=== PATIENT | female | born 1975 ===

== ENCOUNTER → 2016-08-26 | Outpatient (CLI) | payer BC ==
[~2016-08-26] VITALS: Ht 152.4 cm; Wt 93.3 kg
[~2016-08-26] MED LIST: CALC500C3; IBUP600T44 PO; PRENTAB26 PO; PYRI100T4 PO; TYLUNK PO
[2016-08-26 15:12] VITALS: BP 132/83; PULSE 98; Ht 152.4 cm; Wt 93.3 kg
== END | disposition home or self-care (01) ==
LOC: C.NEUR 14:25
PROVIDERS: ATTEND Internal Medicine Pulmonary Disease
DX: R06.83 Snoring (principal); G47.19 Other hypersomnia; R53.83 Other fatigue

== ENCOUNTER → 2016-10-09 | Outpatient (CLI) | payer BC ==
--- NOTE | 2016-10-10 06:04 | PAP/PSG TECHNICIAN REPORT ---
[facility] Typesetting Machine Tender Polysomnogram Report Study name: None Report date: 10/10/2016 Study date: 10/09/2016 Referring Physician: DR. VELA Name: ERIKA JOLLY Interpreting Physician: Nnamdi Vela M.D. Date of : 1975 Typesetting Machine Tender: KAILEY Calle. Sex: Female Age: 40 StudyType: PSG Weight: 205 lbs 16 inches Height: 40 years, Height 5' 0" Neck Circum: BMI: 40.03 Medications: ATRALIN GEL, BENZACLIN GEL, PAROXETINE HCL 40 MG, SOLODYN Patient History PATIENT HAS HISTORY OF EXCESSIVE DAYTIME SLEEPINESS, SNORING, FATIGUE AND A DEVOATED SEPTUM. SHE ALSO HAS HISTORY OF DEPRESSION. SHE IS HERE TODAY FOR AN EVALUATION OF ML. ESS = 9 RM 7 Parameters Monitored NPSG: E1-M2, E2-M1, Fp1-M2, Fp2-M1, F3-M2, F4-M2, F4-M1, C3-M2, C4-M2, C4-M1, O1-M2, O2-M2, O2-M1, T3-M2, T4-M1, P3-M2, P4-M1, CHIN1, CHIN2, HR, EKG, Legs, PFLOW, SNOR, FLOW, CFLOW, Tidal Volume, THOR, ABDO, SpO2, PLTH, CPRESS, ETCO2 Wave, ETCO2, pH Sleep Architecture Sleep Stages Time at Lights Off 10:13:22 PM STAGES Time (min.) TST (%) Time at Lights On 5:32:52 AM Wake 112.5 -- Total Recording Time (TRT) 440.00 min. N1 25.0 8 Total Sleep Period (TSP) 360.5 min. N2 210.5 64 Total Sleep Time (TST) 327.0min. N3 45.0 14 Awake Time 113.0 min. REM 46.5 14 Wake after Sleep Onset 34.5 min. Sleep Efficiency (SE) 74 % Sleep Onset Latency (SHANNON) 78.0 min. Number of Stage 1 Shifts None Awakenings 12 Stage Changes 53 Number of REM periods 3 REM 46.5 14 REM Latency 140.5 min. NREM 280.5 86 Body Position Analysis Supine Right Left Side Prone Vertical Total Sleep Time (min.) 192.5 225.9 0.0 225.87 0.0 0.0 Total Sleep Time (%) 31% 69% 0% 69 0% N/A% Total Sleep Time REM (min.) 15.1 31.4 0.0 None 0.0 0.0 Total Sleep Time NREM (min.) 86.0 194.5 0.0 None 0.0 0.0 Intermittent Wake (min.) 91.4 21.1 0.0 None 0.0 0.0 Total Sleep Period (%) 31% None None None None None Arousals Myoclonus (PLM) * Events Count Index Events Count Index Spontaneous 27 5 Events Awake (PLMW) 136 72.5 Respiratory 2 0.4 Events Asleep w/ Arousal (PLMA) 9 1.7 PLM 9 2 Events Asleep w/o Arousal (PLMS) 49 9.0 Snoring 10 2 Total Asleep 58 10.6 Total 47 9 Total 194 26 Respiratory Analysis * CA OA MA CH H RERA Total Count 0 0 0 0 8 1 8 Index 0.0 0.0 0.0 0 1.5 0 1.7 Mean Duration 0.0 0.0 0.0 0.00 16.0 15.3 15.9 Longest Duration 0.0 0.0 0.0 0.00 0.0 15.3 19.8 Respiratory Event Summary Total Supine ~Supine Right Left Prone REM NREM Apneas Count 0 0 0 0 N/A N/A 0 0 Index 0.0 0 0 0.0 N/A N/A 0 0 Hypopneas (4% Desat) Count 8 4 4 4 N/A N/A 7 1 Index 1.5 2.4 1 1.1 N/A N/A 9.0 0.2 Apneas & All Hypopneas Count 8 4 4 4 N/A N/A 7 1 Index 1.5 2 1 1 N/A N/A 9.0 0.2 Respiratory Events (Marine Equipment Sales Engineer+All Hyp+RERA) Count 8 4 5 5 N/A N/A 7 1 Index 1.7 2 1 1.3 N/A N/A 9.0 0.4 Respiratory Related Arousal Count 2 4 2 2 N/A N/A 1 1 Index 0.4 0 1 1 N/A N/A 1 0 Snoring Analysis Supine Right Left Prone REM NREM Total Snore duration 58.0 min Snores count 571 1,505 N/A N/A 268 1,808 2,076 Snore mean duration 1.7 Sec Snores index 339 400 N/A N/A 345.8 386.7 380.9 TST with snoring (%) 17.7% Desaturation Event Summary: Minimum %SpO2 Event Count Mean/Min/Max Duration(sec.) Desaturation Index % Time In Bed > 90 9 23.9 / 9.8 / 42.0 1.3 99.6 86 - 90 1 9.8 / 9.8 / 9.8 38.1 0.4 81 - 85 0 N/A 0.0 0.0 76 - 80 0 N/A 0.0 0.0 71 - 75 0 N/A 0.0 0.0 66 - 70 0 N/A 0.0 0.0 61 - 65 0 N/A 0.0 0.0 56 - 60 0 N/A 0.0 0.0 51 - 55 0 N/A 0.0 0.0 < 50 0 N/A 0.0 0.0 Total REM NREM Awake <50% 0.0 min. 0.0 min. 0.0 min. 0.0 min. 51 - 60% 0.0 min. 0.0 min. 0.0 min. 0.0 min. 61 - 70% 0.0 min. 0.0 min. 0.0 min. 0.0 min. 71 - 80% 0.1 min. 0.0 min. 0.0 min. 0.1 min. 81 - 90% 1.6 min. 1.6 min. 0.0 min. 0.1 min. 91 - 100% 429.1 min. 44.9 min. 280.3 min. 103.8 min. Average 93 93 93 94 Minimum SpO2 76 88 91 76 Desaturation Event Index 1.2 9.0 0.2 0.5 # Desat. Events below 89% 1 1 N/A N/A Time(%) with Saturation below 89% 0.1 0.0 0.0 0.0 Time(min.) with Saturation below 89% 0.3 0.1 0.0 0.2 Time (mins) REM (mins) NREM (mins) % of TST SpO2 Below 90% 6 6 NN/A 0.1 SpO2 Below 88% 1 0 0 0 Heart Rate Analysis Min (bpm) Max (bpm) Average (bpm) Awake 46 300 83 NREM 73 98 86 REM 73 105 88 Overall 73 105 86 Supplemental O2 Values Minimum O2 level: None Value Start Time End Time Typesetting Machine Tender Comments Mrs. Jolly slept in the right and supine positions. No cardiac arrhythmia noted. Leg movements noted. No bruxism noted. Snoring was noted and scored as a 3 on a scale of 1 through 5. (0=no snoring, 5=snoring loud enough to be heard through a closed door or down the [address] way) Mrs. Jolly awoke to use the restroom 1 time during the night. Mrs. Jolly stated I slept as well as I do when I am in my own bed. The final report will be interpreted and signed by a sleep physician. The completed physician report will then be placed in the patient medical record. Therapy (cm H2O) 0 TIB (min.) 439.5 TST (min.) 327.0 Sleep Onset (min.) 78.0 REM Onset From Sleep (min.) 140.5 Sleep Efficiency % 74 Wakefulness (%) 26 Wakefulness (min.) 113.0 NREM 1 (%) 8 NREM 1 (min.) 25.0 NREM 2 (%) 64 NREM 2 (min.) 210.5 NREM 3 (%) 14 NREM 3 (min.) 45.0 REM (%) 14 REM (min.) 46.5 # Arousals 47 Arousal Index 9 # Snore 2,076 Snore Index 380.9 AHI 1.5 AHI Supine 2 AHI Non-Supine 1 NREM AHI 0.2 REM AHI 9.0 RDI 1.7 # Obstructive Apnea 0 # Central Apnea 0 # Mixed Apnea 0 # Hypopneas 8 RERAs 1 Total Respiratory Events 9 Time Below SpO2 89% (min.) 0.1 Mean NREM SpO2 (%) 93 Mean REM SpO2 (%) 93 Mean Sleep SpO2 (%) 93 Min NREM SpO2 (%) 91 Min REM SpO2 (%) 88 Position Supine (min.) 192.5 Position Non-supine (min.) 225.9 LM Index Sleep 10.6 LM Index NREM 8.1 LM Index REM 25.8 Mean Heart Rate (bpm) 86 Min Heart Rate (bpm) 73
--- NOTE | 2016-10-10 19:13 | POLYSOMNOGRAPH REPORT ---
CLINICAL DATA: A 40-year-old female with BMI of 40 referred by myself, Dr. Dominik Ross and Miguel Maciel for evaluation of excessive daytime sleepiness, snoring, fatigue, deviated septum and depression. Her [place] sleepiness score is 9/24. SLEEP ARCHITECTURE: Total sleep period was 360.5 minutes. Total sleep time was 327 minutes divided between 280.5 minutes of non-REM sleep and 46.5 minutes of REM sleep. Sleep onset latency was delayed at 78 minutes. REM latency was mildly delayed at 140.5 minutes. Sleep efficiency was mildly reduced at 74%. Wake after sleep onset was 34.5 minutes. Sleep consisted of stage N1 8%, stage N2 64%, stage III 14%, N2, and REM 14%. AROUSAL DATA: 47 arousals were recorded for an index of 9 per hour. 27 were spontaneous. Ten were due to snoring. PLM DATA: 58 limb movements during sleep were noted for an index of 10.6 per hour with arousal index of 1.7 per hour. RESPIRATORY DATA: There was no evidence of clinically significant sleep apnea/hypopnea. The AHI was 1.5. There were 8 hypopneic episodes. The mean duration of hypopnea was 15 seconds. OXIMETRY DATA: No significant hypoxemia was seen. Oxygen prachi was 88% during REM. The mean saturation was 93%. EKG: Heart rates ranged from 73-105 beats per minute. No arrhythmias were noted. CREWMAN ARMOURED PERSONNEL CARRIER M113'S COMMENTS: The patient slept in the right and supine positions. Snoring was moderate, rated 3 on a scale of 1-5. IMPRESSION: No evidence of clinically significant sleep apnea/hypopnea, nocturnal hypoxemia or abnormal limb movements during sleep to explain this patient's symptoms. RECOMMENDATIONS: The patient should continue to practice good sleep hygiene. Weight loss may be of benefit. Continue treatment for depression is recommended. Clinical correlation is needed. [facility]
== END | disposition home or self-care (01) ==
LOC: C.NEUR 21:00
PROVIDERS: ATTEND Internal Medicine Pulmonary Disease
DX: G47.19 Other hypersomnia (principal); R53.83 Other fatigue; R06.83 Snoring

== ENCOUNTER → 2016-10-18 | Outpatient (CLI) | payer BC ==
[~2016-10-18] VITALS: Ht 152.4 cm; Wt 95.8 kg
[2016-10-18 15:24] VITALS: BP 118/78; PULSE 103; Ht 152.4 cm; Wt 95.8 kg
== END | disposition home or self-care (01) ==
LOC: C.NEUR 13:37
PROVIDERS: ATTEND Internal Medicine Pulmonary Disease
DX: R06.83 Snoring (principal); J32.4 Chronic pansinusitis

== ENCOUNTER → 2017-09-21 | Outpatient (CLI) | payer BC, OTHER | END | disposition home or self-care (01) | LOC: C.LAB1850 11:07 | PROVIDERS: ATTEND Internal Medicine Endocrinology, Diabetes & Metabolism | DX: E03.9 Hypothyroidism, unspecified (principal) ==

== ENCOUNTER → 2017-11-23 | Outpatient (CLI) | payer OTHER | END | disposition home or self-care (01) | LOC: C.LAB1850 09:31 | PROVIDERS: ATTEND Internal Medicine Endocrinology, Diabetes & Metabolism | DX: E03.9 Hypothyroidism, unspecified (principal) ==

== ENCOUNTER 2022-05-27 21:48 | Observation (INO) ==
--- NOTE | 2022-05-27 22:14 | Emergency Department Note ---
Impression & Plan Slurred speech, Acute left-sided weakness, Paresthesia of left arm and leg ED Provider Note Name: ERIKA GOTTI Age: 46 Sex: F Arrives Via: Walk-In Informant: Patient ED Provider: Jerman Hughes MD Chief Complaint: Neurologic complaint Impression: As per impressions above Medical Decision Makin-year-old female with a history of hypothyroid, migraines, anxiety/depression arrives for evaluation of essentially 48 hours of left arm and leg paresthesia/heaviness which initially had started after an episode of slurred speech and weakness in left arm and leg. On arrival she has an NIH score of 0 and has no acute concerning findings by examination though story is quite concerning. A CT of the head with angio of the head and neck was obtained which is fortunately unremarkable. Labs obtained and unremarkable. Her blood pressure runs a bit low she is given some IV fluids she has no significant discomfort. EKG is unremarkable and her troponin is within normal limits I think ACS is quite unlikely. There is no A. fib. I do not see any clear gayle cation for anticoagulation beyond just giving her a full dose aspirin at this time. Given her symptoms I think it would be prudent bring her in for further work-up for possible stroke. Patient is agreeable to this as it is . Hospitalist consulted for further management. Patient has no active neurologic deficits thus emergent MRI not indicated. She has no recent story to be concerning for possible underlying dissection with a negative CTA I think this is unlikely. She does not have evidence of meningitis by examination. Furthermore patient does have a history of migraines though makes it clear this is not like her typical migraine. Prior Medical Record and Triage/Nursing Notes reviewed by Me Additional history obtained from chart Differentials:Stroke, TIA, ICH, dissection, tumor, migraine, electrolyte imbalance, meningitis, amongst other Vital Signs: reviewed and remarkable for mildly hypotensive Interventions: Normal saline bolus 1 L IV, aspirin 324 mg p.o. Labs:Reviewed and remarkable for no significant abnormalities Imaging:CT of the head and CT angio of the head neck as per radiology no acute findings EKG:As per my interpretation. Indication strokelike symptoms. Sinus bradycardia at 59 bpm with a QTC of 429. There is no ectopy nor ischemia. When compared to an EKG of February 21, 2022 there is no acute change. Consults:Dr Raymond Plan: Disposition:Hospitalization. Condition: Good History of Present Illness:46-year-old female arrives for evaluation of strokelike symptoms. Patient notes that 2 evenings ago she was having some heaviness in her left arm and left leg felt like she could not walk properly. Shortly thereafter she realized she was having difficulty with speaking and had slurred speech for 5 to 10 minutes. Symptoms seem to have resolved over the next few hours but she states she has continued feeling a heaviness feeling in her left arm and leg. She denies any weakness, gait instability, small muscle dexterity issues, other concerning signs or symptoms though does note that she has been having pretty severe headache. Headache is left frontal. Stabbing in nature. Different than her typical migraines. No fevers, chills, neck stiffness. No falls, trauma, injuries. She takes no blood thinners nor aspirin. She is on topiramate for her migraines and has not had a severe migraine in quite some time and states this is not similar to those. No medications prior to arrival. Nothing makes better or worse. Patient had called her PCP who advised she had to come to the ER for evaluation. ROS: See above HPI for pertinent positives & negatives. A total of 10 systems reviewed and were otherwise negative. Past Medical History:Hypothyroid, migraine, anxiety/depression Past Surgical History:Gastric bypass Family History:Grandfather with a history of stroke Social History:Non-smoker, no drugs, , occasional alcohol Home Medications: levothyroxine, sertraline, topiramate Allergies:nkda Vitals:Blood Pressure: 134/84, Pulse 59, RR 18, T 36.3C, O2 99% on RA Physical Exam: GENERAL: Patient is anxious appearing and in mild distress. EYES: No scleral icterus, unremarkable pupils. ENT: Mucous membranes moist, no nasal congestion. NECK: No masses appreciated, nomeningismus, trachea is midline. RESPIRATORY: No dyspnea. Clear to auscultation and equal bilaterally. No wheeze, no rhonchi. CARDIOVASCULAR: Regular rate and rhythm.No murmurs, rubs, gallops appreciated. GASTROINTESTINAL: Abdomen soft, non-tender, no peritonitis.Bowel sounds positive.No masses appreciated. BACK: No midline tenderness, no CVA tenderness EXTREMITIES: Normal motion all extremities, no cyanosis, no edema. NEUROLOGIC: Alert and oriented, no acute motor or sensory deficits, no focal weakness, cranial nerves grossly intact. SKIN: No rash, no jaundice, no diaphoresis. PSYCH: Appropriate GCS: 15 ED Course: Times/Reassessments: Stable throughout no distress and comfortable plan for hospitalization Jerman Hughes MD Past Med/Surg History Medical History Fatigue Hypothyroidism Obesity Surgical History Gastric bypass status for obesity Family History (Updated 02/21/22 @ 20:28 by Maged Vázquez) Other Hypertension Social History Smoking Status: Never smoker Preferred Language: Georgian Feels Safe at Home: Yes Allergies Allergies Allergy/AdvReac Type Severity Reaction Status Date / Time No Known Allergies Allergy Unknown Verified 05/28/22 00:30 Home Meds Home Medications Medication Instructions Recorded Confirmed omeprazole 20 mg capsule,delayed 20 mg PO QAM 05/27/22 05/27/22 release cholecalciferol (vitamin D3) 50 50 mcg PO DAILY 05/28/22 05/28/22 mcg (2,000 unit) capsule (Vitamin D3) cyanocobalamin (vitamin B-12) 1,000 mcg IM UD 05/28/22 05/28/22 1,000 mcg/mL injection solution multivitamin (Multiple Vitamins 1 tab PO DAILY 05/28/22 05/28/22 tablet) sertraline 100 mg tablet 50 mg PO DAILY 05/28/22 05/28/22 topiramate 50 mg tablet 50 mg PO HS 05/28/22 05/28/22 zinc gluconate 30 mg tablet 30 mg PO DAILY 05/28/22 05/28/22 Previous Rx's Medication Instructions Recorded levothyroxine 150 mcg tablet 150 mcg PO DAILY #90 tabs 02/16/22 Results & Data (ED) Vital Signs Vital Signs - 24 hr 05/27/22 21:54 05/27/22 22:21 05/27/22 23:08 Temperature 36.3 C L Temperature Source Temporal Artery Scan Pulse Rate 59 L Pulse Rate [Left Apical] 66 Pulse Rhythm [Left Apical] Regular Pulse Strength [Left Apical] Normal Respiratory Rate 18 16 Respiratory Effort / Characteristics Non-Labored Spontaneous Non-Labored Spontaneous Respiratory Depth Normal Normal Respiratory Pattern Regular Blood Pressure 134/84 Blood Pressure [Left Arm] 87/60 L Blood Pressure Mean 100 Blood Pressure Mean [Left Arm] 69 Blood Pressure Position [Left Arm] Pulse Oximetry 99 99 Oxygen Delivery Method Room Air Room Air Room Air Sepsis Recent Fever Within 48 Hours No Sepsis New/Unexplained Change in Mental Status N/A Sepsis Action Taken by Nursing No Action Required 05/27/22 23:38 05/28/22 01:02 Temperature Temperature Source Pulse Rate Pulse Rate [Left Apical] 66 77 Pulse Rhythm [Left Apical] Regular Regular Pulse Strength [Left Apical] Normal Normal Respiratory Rate 16 16 Respiratory Effort / Characteristics Non-Labored Spontaneous Non-Labored Spontaneous Respiratory Depth Normal Normal Respiratory Pattern Blood Pressure Blood Pressure [Left Arm] 99/65 L 90/52 L Blood Pressure Mean Blood Pressure Mean [Left Arm] 76 64 Blood Pressure Position [Left Arm] Lying Pulse Oximetry 99 100 Oxygen Delivery Method Room Air Room Air Sepsis Recent Fever Within 48 Hours Sepsis New/Unexplained Change in Mental Status Sepsis Action Taken by Nursing Laboratory Data Result diagrams: 05/27/22 22:18 05/27/22 22:18 Lab Results 05/27/22 05/27/22 05/27/22 Range/Units 22:18 22:18 22:18 WBC 6.97 (4.8-10.8) K/ul RBC 4.44 (3.93-5.22) M/uL Hgb 14.3 (12.0-16.0) g/dl Hct 43.0 (34.1-44.9) % MCV 96.8 (80.0-100.0) fL MCH 32.2 (25.0-34.0) pg MCHC 33.3 (32.0-36.0) g/dL RDW Std Deviation 50.1 H (36.4-46.3) fL RDW Coeff of Cirilo 14.0 (11.5-14.5) % Plt Count 196 (130-400) K/uL MPV 10.6 (9.4-12.3) fL Immature Gran % (Auto) 0.3 % Neut % (Auto) 45.5 % Lymph % (Auto) 44.9 % [place] % (Auto) 7.2 % Eos % (Auto) 1.1 % Baso % (Auto) 1.0 % Neut # (Auto) 3.17 (1.4-6.5) K/uL Lymph # (Auto) 3.13 (1.2-3.4) K/uL [place] # (Auto) 0.50 (0.24-0.82) K/uL Eos # (Auto) 0.08 (0-0.50) K/uL Baso # (Auto) 0.07 (0-0.2) K/uL Immature Gran # (Auto) 0.02 (0.00-0.02) K/uL PT 10.3 (9.0-12.0) Seconds INR 1.0 (0.9-1.1) APTT 27.8 (21.0-31.0) Seconds PTT Ratio 1.0 Sodium 139 (136-145) mmol/L Potassium 4.3 (3.5-5.1) mmol/L Chloride 112 H (98-107) mmol/L Carbon Dioxide 21 (21-32) mmol/L Anion Gap 6 (3-11) BUN 10 (6-23) mg/dl Creatinine 0.64 (0.6-1.2) mg/dl Est Cr Clr Drug Dosing 98.2 ml/min Est GFR ( Amer) 124.0 ml/min Est GFR (Non-Af Amer) 107.0 ml/min BUN/Creatinine Ratio 15.6 (10-20) Glucose 88 (70-99(Fasting)) mg/dl Calcium 8.4 L (8.5-10.1) mg/dl Magnesium 1.9 (1.7-2.4) mg/dl Total Bilirubin 0.5 (0.2-1.0) mg/dl AST 33 (13-39) U/L ALT 33 (7-52) U/L Alkaline Phosphatase 138 H (34-104) U/L Troponin I High Sens < 2.3 (0-14) pg/ml Total Protein 7.2 (6.0-8.3) gm/dl Albumin 4.1 (3.4-5.0) gm/dl Globulin 3.1 (2.5-4.0) gm/dl Albumin/Globulin Ratio 1.3 (0.9-2) TSH (0.300-4.500) uIu/ml SARS-CoV-2, RNA, NAAT (NEGATIVE) 05/27/22 05/28/22 Range/Units 22:18 00:42 WBC (4.8-10.8) K/ul RBC (3.93-5.22) M/uL Hgb (12.0-16.0) g/dl Hct (34.1-44.9) % MCV (80.0-100.0) fL MCH (25.0-34.0) pg MCHC (32.0-36.0) g/dL RDW Std Deviation (36.4-46.3) fL RDW Coeff of Cirilo (11.5-14.5) % Plt Count (130-400) K/uL MPV (9.4-12.3) fL Immature Gran % (Auto) % Neut % (Auto) % Lymph % (Auto) % [place] % (Auto) % Eos % (Auto) % Baso % (Auto) % Neut # (Auto) (1.4-6.5) K/uL Lymph # (Auto) (1.2-3.4) K/uL [place] # (Auto) (0.24-0.82) K/uL Eos # (Auto) (0-0.50) K/uL Baso # (Auto) (0-0.2) K/uL Immature Gran # (Auto) (0.00-0.02) K/uL PT (9.0-12.0) Seconds INR (0.9-1.1) APTT (21.0-31.0) Seconds PTT Ratio Sodium (136-145) mmol/L Potassium (3.5-5.1) mmol/L Chloride (98-107) mmol/L Carbon Dioxide (21-32) mmol/L Anion Gap (3-11) BUN (6-23) mg/dl Creatinine (0.6-1.2) mg/dl Est Cr Clr Drug Dosing ml/min Est GFR ( Amer) ml/min Est GFR (Non-Af Amer) ml/min BUN/Creatinine Ratio (10-20) Glucose (70-99(Fasting)) mg/dl Calcium (8.5-10.1) mg/dl Magnesium (1.7-2.4) mg/dl Total Bilirubin (0.2-1.0) mg/dl AST (13-39) U/L ALT (7-52) U/L Alkaline Phosphatase (34-104) U/L Troponin I High Sens (0-14) pg/ml Total Protein (6.0-8.3) gm/dl Albumin (3.4-5.0) gm/dl Globulin (2.5-4.0) gm/dl Albumin/Globulin Ratio (0.9-2) TSH 0.588 (0.300-4.500) uIu/ml SARS-CoV-2, RNA, NAAT NEGATIVE (NEGATIVE) Administered Medications Magnesium Sulfate/Dextrose (Magnesium Sulfate / D5w) 1 gm in 100 mls @ 50 mls/hr IV ONE ONE Stop: 05/28/22 03:20 Last Admin: 05/28/22 02:09 Dose: 50 mls/hr Documented By: WENDY Sodium Chloride (Nss 1000ml) 1,000 mls @ 100 mls/hr IV .Q10H STA Stop: 05/28/22 11:43 Last Admin: 05/28/22 02:09 Dose: 100 mls/hr Documented By: WENDY Discontinued Medications Aspirin (Aspirin 81 Mg Chew) 324 mg PO NOW STA Stop: 05/28/22 00:30 Last Admin: 05/28/22 00:47 Dose: 324 mg Documented By: WENDY Sodium Chloride (Nss 1000ml) 1,000 mls @ 999 mls/hr IV .Q1H1M ONE Stop: 05/28/22 00:20 Last Infusion: 05/28/22 00:45 Dose: 0 mls/hr Documented By: Admin: 05/27/22 23:43 Dose: 999 mls/hr Documented By: WENDY Ioversol (Optiray 320 500ml) 111 ml IV ONCE ONE Stop: 05/27/22 22:41 Last Admin: 05/27/22 22:40 Dose: 111 ml Documented By: JOSE Imaging Data Radiologist's Impression: Head CT 05/27/22 22:[address] OF THE BRAIN; CT ANGIOGRAM OF THE BRAIN; CT ANGIOGRAM OF THE NECK CLINICAL HISTORY: Strokelike symptoms. COMPARISON STUDY: No priors. TECHNIQUE: Unenhanced axial CT scan of the brain is performed. Subsequently, following the IV administration of 111 of Optiray 320, CT angiogram of the head and neck was performed from the aortic arch to the vertex. Images are reviewed in the axial, sagittal, and coronal planes. 3-D MIPS images are created and assessed. IV contrast was administered without complication. All measurements were calculated based on NASCET criteria. A dose lowering technique was utilized adhering to the principles of ALARA. CT DOSE: 1034.23 mGy.cm FINDINGS: Brain parenchyma: The brain parenchyma is normal in appearance. There is no hemorrhage, mass effect, or evidence of acute territorial ischemia by CT criteria. There is no evidence of enhancing mass lesion on the angiogram phase images. The ventricles, sulci, and cisterns are normal in configuration. Jimenez- white matter differentiation is preserved. No extra-axial fluid collection is seen. Thoracic aorta: Visualized portions of the thoracic aorta are normal in caliber. The aortic arch demonstrates standard 3-vessel anatomy. Right carotid arterial system: The right common carotid artery is widely patent, as are the right internal and external carotid arteries. Left carotid arterial system: The left common carotid artery is widely patent, as are the left internal and external carotid arteries. Vertebral arteries: The vertebral arteries are widely patent bilaterally and codominant. No dissection is seen. Subclavian arteries: Widely patent bilaterally. Intracranial vasculature: The internal carotid arteries are patent at the skull base, as are the anterior and middle cerebral arteries bilaterally. The vertebrobasilar system and posterior cerebral arteries are widely patent. The vertebral arteries are codominant. There is no aneurysm, high-grade stenosis, or focal vessel cut off seen throughout the intracranial circulation. Jugular veins: Patent bilaterally. Dural sinuses: Patent. Lung apices: Partially visualized upper lobe lung parenchyma appears clear. Soft tissues: The visualized pharyngeal soft tissues are normal in appearance noting angiographic phase technique. The oropharyngeal airway appears widely patent. The salivary and thyroid glands are normal in appearance. No cervical lymphadenopathy is seen. Skeletal structures: The calvarium appears intact. The cervical spine is within normal limits. Orbits: The bony orbits are intact. Orbital contents are normal as visualized. Sinuses and mastoids: The paranasal sinuses are clear. There is trace right mastoid effusion. The left mastoid air cells are well pneumatized. IMPRESSION: 1. There is no hemorrhage, mass effect, or evidence of acute territorial ischemia by CT criteria. 2. Unremarkable CT angiogram of the brain. 3. Unremarkable CT angiogram of the neck. ACT 112: Negative or not required by law. Electronically signed by: Kaleb Bernard M.D. 05/27/2022 11:21 PM Head CTA 05/27/22 22:[address] OF THE BRAIN; CT ANGIOGRAM OF THE BRAIN; CT ANGIOGRAM OF THE NECK CLINICAL HISTORY: Strokelike symptoms. COMPARISON STUDY: No priors. TECHNIQUE: Unenhanced axial CT scan of the brain is performed. Subsequently, following the IV administration of 111 of Optiray 320, CT angiogram of the head and neck was performed from the aortic arch to the vertex. Images are reviewed in the axial, sagittal, and coronal planes. 3-D MIPS images are created and assessed. IV contrast was administered without complication. All measurements were calculated based on NASCET criteria. A dose lowering technique was utilized adhering to the principles of ALARA. CT DOSE: 1034.23 mGy.cm FINDINGS: Brain parenchyma: The brain parenchyma is normal in appearance. There is no hemorrhage, mass effect, or evidence of acute territorial ischemia by CT criter ia. There is no evidence of enhancing mass lesion on the angiogram phase images. The ventricles, sulci, and cisterns are normal in configuration. Jimenez-white matter differentiation is preserved. No extra-axial fluid collection is seen. Thoracic aorta: Visualized portions of the thoracic aorta are normal in caliber. The aortic arch demonstrates standard 3-vessel anatomy. Right carotid arterial system: The right common carotid artery is widely patent, as are the right internal and external carotid arteries. Left carotid arterial system: The left common carotid artery is widely patent, as are the left internal and external carotid arteries. Vertebral arteries: The vertebral arteries are widely patent bilaterally and codominant. No dissection is seen. Subclavian arteries: Widely patent bilaterally. Intracranial vasculature: The internal carotid arteries are patent at the skull base, as are the anterior and middle cerebral arteries bilaterally. The vertebrobasilar system and posterior cerebral arteries are widely patent. The vertebral arteries are codominant. There is no aneurysm, high-grade stenosis, or focal vessel cut off seen throughout the intracranial circulation. Jugular veins: Patent bilaterally. Dural sinuses: Patent. Lung apices: Partially visualized upper lobe lung parenchyma appears clear. Soft tissues: The visualized pharyngeal soft tissues are normal in appearance noting angiographic phase technique. The oropharyngeal airway appears widely patent. The salivary and thyroid glands are normal in appearance. No cervical lymphadenopathy is seen. Skeletal structures: The calvarium appears intact. The cervical spine is within normal limits. Orbits: The bony orbits are intact. Orbital contents are normal as visualized. Sinuses and mastoids: The paranasal sinuses are clear. There is trace right mastoid effusion. The left mastoid air cells are well pneumatized. IMPRESSION: 1. There is no hemorrhage, mass effect, or evidence of acute territorial ischemia by CT criteria. 2. Unremarkable CT angiogram of the brain. 3. Unremarkable CT angiogram of the neck. ACT 112: Negative or not required by law. Electronically signed by: Kaleb Bernard M.D. 05/27/2022 11:21 PM Neck CTA 05/27/22 22:[address] OF THE BRAIN; CT ANGIOGRAM OF THE BRAIN; CT ANGIOGRAM OF THE NECK CLINICAL HISTORY: Strokelike symptoms. COMPARISON STUDY: No priors. TECHNIQUE: Unenhanced axial CT scan of the brain is performed. Subsequently, following the IV administration of 111 of Optiray 320, CT angiogram of the head and neck was performed from the aortic arch to the vertex. Images are reviewed in the axial, sagittal, and coronal planes. 3-D MIPS images are created and assessed. IV contrast was administered without complication. All measurements were calculated based on NASCET criteria. A dose lowering technique was utilized adhering to the principles of ALARA. CT DOSE: 1034.23 mGy.cm FINDINGS: Brain parenchyma: The brain parenchyma is normal in appearance. There is no hemorrhage, mass effect, or evidence of acute territorial ischemia by CT criteria. There is no evidence of enhancing mass lesion on the angiogram phase images. The ventricles, sulci, and cisterns are normal in configuration. Jimenez- white matter differentiation is preserved. No extra-axial fluid collection is seen. Thoracic aorta: Visualized portions of the thoracic aorta are normal in caliber. The aortic arch demonstrates standard 3-vessel anatomy. Right carotid arterial system: The right common carotid artery is widely patent, as are the right internal and external carotid arteries. Left carotid arterial system: The left common carotid artery is widely patent, as are the left internal and external carotid arteries. Vertebral arteries: The vertebral arteries are widely patent bilaterally and codominant. No dissection is seen. Subclavian arteries: Widely patent bilaterally. Intracranial vasculature: The internal carotid arteries are patent at the skull base, as are the anterior and middle cerebral arteries bilaterally. The vertebrobasilar system and posterior cerebral arteries are widely patent. The vertebral arteries are codominant. There is no aneurysm, high-grade stenosis, or focal vessel cut off seen throughout the intracranial circulation. Jugular veins: Patent bilaterally. Dural sinuses: Patent. Lung apices: Partially visualized upper lobe lung parenchyma appears clear. Soft tissues: The visualized pharyngeal soft tissues are normal in appearance noting angiographic phase technique. The oropharyngeal airway appears widely patent. The salivary and thyroid glands are normal in appearance. No cervical lymphadenopathy is seen. Skeletal structures: The calvarium appears intact. The cervical spine is within normal limits. Orbits: The bony orbits are intact. Orbital contents are normal as visualized. Sinuses and mastoids: The paranasal sinuses are clear. There is trace right mastoid effusion. The left mastoid air cells are well pneumatized. IMPRESSION: 1. There is no hemorrhage, mass effect, or evidence of acute territorial ischemia by CT criteria. 2. Unremarkable CT angiogram of the brain. 3. Unremarkable CT angiogram of the neck. ACT 112: Negative or not required by law. Electronically signed by: Kaleb Bernard M.D. 05/27/2022 11:21 PM Discharge Plan Visit Data Chief Complaint: Neuro Symptoms/Deficit Stated Complaint: NUMBNESS IN LEFT SIDE, FEELING WEAK, HEADACHE ED Provider: Jerman Hughes Discharge Problem: Slurred speech, Acute left-sided weakness, Paresthesia of left arm and leg Forms Stand Alone Forms: [facility] Prescriptions Prescriptions: No Action levothyroxine 150 mcg tablet 150 mcg PO DAILY Qty: 90 3RF omeprazole 20 mg capsule,delayed release(DR/EC) 20 mg PO QAM cyanocobalamin (vitamin B-12) [Vitamin B-12] 1,000 mcg/mL Solution 1,000 mcg IM UD topiramate 50 mg tablet 50 mg PO HS cholecalciferol (vitamin D3) [Vitamin D3] 50 mcg (2,000 unit) Capsule 50 mcg PO DAILY multivitamin [Multiple Vitamins] Tablet 1 tab PO DAILY sertraline 100 mg tablet 50 mg PO DAILY zinc gluconate 30 mg Tablet 30 mg PO DAILY Referrals Referrals: Alton Kerns MD [Primary Care Provider] -
[2022-05-27 22:25] LABS: Basophils # (auto) 0.07 K/uL (0-0.2); Eosinophils # (auto) 0.08 K/uL (0-0.50); Eosinophils % (auto) 1.1 %; Hemoglobin 14.3 g/dl (12.0-16.0); Immature Granulocytes # (auto) 0.02 K/uL (0.00-0.02); Immature Granulocytes % (auto) 0.3 %; Lymphocytes # (auto) 3.13 K/uL (1.2-3.4); Lymphocytes % (auto) 44.9 %; Mean Corpuscular Hemoglobin 32.2 pg (25.0-34.0); Mean Corpuscular Hgb Conc 33.3 g/dL (32.0-36.0); Mean Corpuscular Volume 96.8 fL (80.0-100.0); Mean Platelet Volume 10.6 fL (9.4-12.3); Monocytes % (auto) 7.2 %; Neutrophils # (auto) 3.17 K/uL (1.4-6.5); Neutrophils % (auto) 45.5 %; Platelet Count 196 K/uL (130-400); RDW Standard Deviation 50.1 fL (36.4-46.3); Red Blood Count 4.44 M/uL (3.93-5.22); White Blood Count 6.97 K/ul (4.8-10.8)
[2022-05-27 22:36] LABS: Partial Thromboplastin Time 27.8 Seconds (21.0-31.0); Prothrombin Time 10.3 Seconds (9.0-12.0)
[2022-05-27] MEDS ORDERED: OPTIRAY 320 500ml IV ONE (22:40)
[2022-05-27 22:50] LABS: Troponin I High Sensitivity < 2.3 pg/ml (0-14)
[2022-05-27 23:02] LABS: Alanine Aminotransferase 33 U/L (7-52); Albumin Globulin Ratio 1.3 (0.9-2); Albumin Level 4.1 gm/dl (3.4-5.0); Alkaline Phosphatase 138 U/L (34-104); Anion Gap 6 (3-11); Aspartate Aminotransferase 33 U/L (13-39); BUN Creatinine Ratio 15.6 (10-20); Bilirubin,Total 0.5 mg/dl (0.2-1.0); Blood Urea Nitrogen 10 mg/dl (6-23); Calcium 8.4 mg/dl (8.5-10.1); Carbon Dioxide 21 mmol/L (21-32); Chloride 112 mmol/L (98-107); Creatinine Clr Calc Pharmacy 98.2 ml/min; Globulin 3.1 gm/dl (2.5-4.0); Glucose 88 mg/dl (70-99(Fasting)); Magnesium 1.9 mg/dl (1.7-2.4); Potassium 4.3 mmol/L (3.5-5.1); Sodium 139 mmol/L (136-145); Total Protein 7.2 gm/dl (6.0-8.3)
[2022-05-27] MEDS ORDERED: SODIUM CHLORIDE 0.9% 1000ML 1,000 ML IV ONE (23:20)
--- NOTE | 2022-05-27 23:23 | CT Scan Report ---
UNENHANCED CT OF THE BRAIN; CT ANGIOGRAM OF THE BRAIN; CT ANGIOGRAM OF THE NECK CLINICAL HISTORY: Strokelike symptoms. COMPARISON STUDY: No priors. TECHNIQUE: Unenhanced axial CT scan of the brain is performed. Subsequently, following the IV adminis tration of 111 of Optiray 320, CT angiogram of the head and neck was performed from the aortic arch t o the vertex. Images are reviewed in the axial, sagittal, and coronal planes. 3-D MIPS images are cre ated and assessed. IV contrast was administered without complication. All measurements were calculate d based on NASCET criteria. A dose lowering technique was utilized adhering to the principles of ALA RA. CT DOSE: 1034.23 mGy.cm FINDINGS: Brain parenchyma: The brain parenchyma is normal in appearance. There is no hemorrhage, mass effect, or evidence of acute territorial ischemia by CT criteria. There is no evidence of enhancing mass lesi on on the angiogram phase images. The ventricles, sulci, and cisterns are normal in configuration. Gr ay-white matter differentiation is preserved. No extra-axial fluid collection is seen. Thoracic aorta: Visualized portions of the thoracic aorta are normal in caliber. The aortic arch demo nstrates standard 3-vessel anatomy. Right carotid arterial system: The right common carotid artery is widely patent, as are the right int ernal and external carotid arteries. Left carotid arterial system: The left common carotid artery is widely patent, as are the left wireless internet installer al and external carotid arteries. Vertebral arteries: The vertebral arteries are widely patent bilaterally and codominant. No dissectio n is seen. Subclavian arteries: Widely patent bilaterally. Intracranial vasculature: The internal carotid arteries are patent at the skull base, as are the ante rior and middle cerebral arteries bilaterally. The vertebrobasilar system and posterior cerebral yash gregorio are widely patent. The vertebral arteries are codominant. There is no aneurysm, high-grade steno sis, or focal vessel cut off seen throughout the intracranial circulation. Jugular veins: Patent bilaterally. Dural sinuses: Patent. Lung apices: Partially visualized upper lobe lung parenchyma appears clear. Soft tissues: The visualized pharyngeal soft tissues are normal in appearance noting angiographic pha se technique. The oropharyngeal airway appears widely patent. The salivary and thyroid glands are nor mal in appearance. No cervical lymphadenopathy is seen. Skeletal structures: The calvarium appears intact. The cervical spine is within normal limits. Orbits: The bony orbits are intact. Orbital contents are normal as visualized. Sinuses and mastoids: The paranasal sinuses are clear. There is trace right mastoid effusion. The lef t mastoid air cells are well pneumatized. IMPRESSION: 1. There is no hemorrhage, mass effect, or evidence of acute territorial ischemia by CT criteria. 2. Unremarkable CT angiogram of the brain. 3. Unremarkable CT angiogram of the neck. ACT 112: Negative or not required by law. Electronically signed by: Kaleb Bernard M.D. 05/27/2022 11:21 PM
[2022-05-28] MEDS ORDERED: ASPIRIN 81 MG CHEW PO STA (00:29)
[2022-05-28] MEDS ORDERED: MAGNESIUM SULFATE / D5W 1 GM/100 ML BAG IV ONE (01:21)
[2022-05-28] MEDS ORDERED: SODIUM CHLORIDE 0.9% 1000ML 1,000 ML IV STA (01:44)
[2022-05-28] MEDS ORDERED: LORazepam 0.5 MG TAB PO PRN (02:10)
[2022-05-28] MEDS ORDERED: traMADol HCL 50 MG TABLET PO PRN (02:10)
[2022-05-28] MEDS ORDERED: ACETAMINOPHEN 325 MG TAB PO PRN (02:55)
[2022-05-28] MEDS ORDERED: PROMETHAZINE HCL 12.5 MG in SODIUM CHLORIDE 0.9% 50 ML IV PRN (02:55)
--- NOTE | 2022-05-28 05:01 | History & Physical Report ---
Date of Service May 28, 2022 Assessment & Plan (1) Headache: Plan: Headache associated with transient strokelike symptoms Complicated migraine versus TIA hypothyroidism, euthyroid as of today TSH history of gastric bypass anxiety/mood disorder, stable OBS Medical telemetry neurochecks MRI brain, TTE for stroke work-up Aspirin for stroke prevention until stroke ruled out Neurology consult Re: Headache with TIA symptoms DVT prophylaxis per Lovenox subcu Full code Text document was generated using [employer] voice recognition software. It may contain grammatical or spelling errors. Kindly contact undersigned for clarification of any documentation item in question. Admission and Anticipated Discharge Date Admission Date: May 28, 2022 History of Present Illness Chief Complaint: Headache, strokelike symptoms Primary Care Provider: Alton Kerns MD History obtained from patient and records. Medical history significant for hypothyroidism, history of gastric bypass, migraine, anxiety/mood disorder. 2 days ago, patient noted transient aphasia symptoms, could not get words out, with left-sided weakness/numbness and achy left-sided headache, nausea symptoms different from migraine attack. Patient also noted posterior neck pain symptoms without radiation to the arms. Transient substernal chest pain complaints like her heart was going to drop. Aphasia and chest pain symptoms resolved after patient able to drink water given by . Headache symptoms persisted with some left-sided weakness. no prior episodes. No recent trauma. Patient called PCPs office yesterday. Patient directed to ER for further evaluation. Aspirin and IVF administered at the ER. Left-sided weakness currently improved as per patient. 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 [place] Allergies Allergy/AdvReac Type Severity Reaction Status Date / Time No Known Allergies Allergy Unknown Verified 05/28/22 00:30 Home Medications Medication Instructions Recorded Confirmed Type levothyroxine 150 mcg tablet 150 mcg PO DAILY #90 tabs 02/16/22 05/27/22 Rx omeprazole 20 mg capsule,delayed 20 mg PO QAM 05/27/22 05/27/22 History release cholecalciferol (vitamin D3) 50 50 mcg PO DAILY 05/28/22 05/28/22 History mcg (2,000 unit) capsule (Vitamin D3) cyanocobalamin (vitamin B-12) 1,000 mcg IM UD 05/28/22 05/28/22 History 1,000 mcg/mL injection solution multivitamin (Multiple Vitamins 1 tab PO DAILY 05/28/22 05/28/22 History tablet) sertraline 100 mg tablet 50 mg PO DAILY 05/28/22 05/28/22 History topiramate 50 mg tablet 50 mg PO HS 05/28/22 05/28/22 History zinc gluconate 30 mg tablet 30 mg PO DAILY 05/28/22 05/28/22 History Past Med/Surg History Medical History Fatigue Hypothyroidism Obesity Surgical History Gastric bypass status for obesity Family History (Updated 02/21/22 @ 20:28 by Maged Vázquez) Other Hypertension Social History Smoking Status: Never smoker Hx Alcohol Use: Yes Alcohol type: wine Hx Substance Use: No Preferred Language: Serbian Communication Ability: Effective Developmental Electronics Assembler Required: No Beliefs That Will Affect Care: None Current Living Situation: Spouse and Family Other Information That Helps Us Care for You: No Feels Safe at Home: Yes Safety Concerns: Feels Safe At This Time Assistive Devices: None Review of Systems Review of Systems: As per HPI, all other systems reviewed and negative Physical Exam Physical Exam: GENERAL: Comfortable, pleasant, obese, no respiratory distress SKIN: Normal color, warm HEENT: [place] palpebral conjunctivae, no ptosis, dry buccal mucosa NECK : Supple, short neck, minimal posterior cervical tenderness CHEST : CTA, no tenderness HEART : RRR, no obvious murmurs ABDOMEN: Some distention, nontender EXTREMITIES : No LE swelling/tenderness, no other conspicuous deformities noted NEUROLOGIC : Coherent, no facial asymmetry, BUE/BLE MMTs 5/5 Results & Data Results & Data ([facility]) Vital Signs (Past 12 Hours) Vital Signs Temp Pulse Pulse Pulse Resp BP BP 05/28/22 03:00 70 05/28/22 04:00 05/28/22 02:56 36.3 C L 70 18 101/69 05/28/22 01:02 77 16 90/52 L 05/27/22 23:38 66 16 99/65 L 05/27/22 23:08 66 16 87/60 L 05/27/22 22:21 05/27/22 21:54 36.3 C L 59 L 18 134/84 Pulse Ox O2 Del Method 05/28/22 03:00 05/28/22 04:00 Room Air 05/28/22 02:56 98 Room Air 05/28/22 01:02 100 Room Air 05/27/22 23:38 99 Room Air 05/27/22 23:08 99 Room Air 05/27/22 22:21 Room Air 05/27/22 21:54 99 Room Air Laboratory Results Laboratory Results WBC 6.97 K/ul (4.8-10.8) 05/27/22 22:18 RBC 4.44 M/uL (3.93-5.22) 05/27/22 22:18 Hgb 14.3 g/dl (12.0-16.0) 05/27/22 22:18 Hct 43.0 % (34.1-44.9) 05/27/22 22:18 MCV 96.8 fL (80.0-100.0) 05/27/22 22:18 MCH 32.2 pg (25.0-34.0) 05/27/22 22:18 MCHC 33.3 g/dL (32.0-36.0) 05/27/22 22:18 RDW Std Deviation 50.1 fL (36.4-46.3) H 05/27/22 22:18 RDW Coeff of Cirilo 14.0 % (11.5-14.5) 05/27/22 22:18 Plt Count 196 K/uL (130-400) 05/27/22 22:18 MPV 10.6 fL (9.4-12.3) 05/27/22 22:18 Immature Gran % (Auto) 0.3 % 05/27/22 22:18 Neut % (Auto) 45.5 % 05/27/22 22:18 Lymph % (Auto) 44.9 % 05/27/22 22:18 [place] % (Auto) 7.2 % 05/27/22 22:18 Eos % (Auto) 1.1 % 05/27/22 22:18 Baso % (Auto) 1.0 % 05/27/22 22:18 Neut # (Auto) 3.17 K/uL (1.4-6.5) 05/27/22 22:18 Lymph # (Auto) 3.13 K/uL (1.2-3.4) 05/27/22 22:18 [place] # (Auto) 0.50 K/uL (0.24-0.82) 05/27/22 22:18 Eos # (Auto) 0.08 K/uL (0-0.50) 05/27/22 22:18 Baso # (Auto) 0.07 K/uL (0-0.2) 05/27/22 22:18 Immature Gran # (Auto) 0.02 K/uL (0.00-0.02) 05/27/22 22:18 PT 10.3 Seconds (9.0-12.0) 05/27/22 22:18 INR 1.0 (0.9-1.1) 05/27/22 22:18 APTT 27.8 Seconds (21.0-31.0) 05/27/22 22:18 PTT Ratio 1.0 05/27/22 22:18 Sodium 139 mmol/L (136-145) 05/27/22 22:18 Potassium 4.3 mmol/L (3.5-5.1) 05/27/22 22:18 Chloride 112 mmol/L (98-107) H 05/27/22 22:18 Carbon Dioxide 21 mmol/L (21-32) 05/27/22 22:18 Anion Gap 6 (3-11) 05/27/22 22:18 BUN 10 mg/dl (6-23) 05/27/22 22:18 Creatinine 0.64 mg/dl (0.6-1.2) 05/27/22 22:18 Est Cr Clr Drug Dosing 98.2 ml/min 05/27/22 22:18 Est GFR ( Amer) 124.0 ml/min 05/27/22 22:18 Est GFR (Non-Af Amer) 107.0 ml/min 05/27/22 22:18 BUN/Creatinine Ratio 15.6 (10-20) 05/27/22 22:18 Glucose 88 mg/dl (70-99(Fasting)) 05/27/22 22:18 Calcium 8.4 mg/dl (8.5-10.1) L 05/27/22 22:18 Magnesium 1.9 mg/dl (1.7-2.4) 05/27/22 22:18 Total Bilirubin 0.5 mg/dl (0.2-1.0) 05/27/22 22:18 AST 33 U/L (13-39) 05/27/22 22:18 ALT 33 U/L (7-52) 05/27/22 22:18 Alkaline Phosphatase 138 U/L (34-104) H 05/27/22 22:18 Troponin I High Sens < 2.3 pg/ml (0-14) 05/27/22 22:18 Total Protein 7.2 gm/dl (6.0-8.3) 05/27/22 22:18 Albumin 4.1 gm/dl (3.4-5.0) 05/27/22 22:18 Globulin 3.1 gm/dl (2.5-4.0) 05/27/22 22:18 Albumin/Globulin Ratio 1.3 (0.9-2) 05/27/22 22:18 TSH 0.588 uIu/ml (0.300-4.500) 05/27/22 22:18 SARS-CoV-2, RNA, NAAT NEGATIVE (NEGATIVE) 05/28/22 00:[address] 05/27/22 22:[address] OF THE BRAIN; CT ANGIOGRAM OF THE BRAIN; CT ANGIOGRAM OF THE NECK CLINICAL HISTORY: Strokelike symptoms. COMPARISON STUDY: No priors. TECHNIQUE: Unenhanced axial CT scan of the brain is performed. Subsequently, following the IV administration of 111 of Optiray 320, CT angiogram of the head and neck was performed from the aortic arch to the vertex. Images are reviewed in the axial, sagittal, and coronal planes. 3-D MIPS images are created and assessed. IV contrast was administered without complication. All measurements were calculated based on NASCET criteria. A dose lowering technique was utilized adhering to the principles of ALARA. CT DOSE: 1034.23 mGy.cm FINDINGS: Brain parenchyma: The brain parenchyma is normal in appearance. There is no hemorrhage, mass effect, or evidence of acute territorial ischemia by CT criteria. There is no evidence of enhancing mass lesion on the angiogram phase images. The ventricles, sulci, and cisterns are normal in configuration. Jimenez- white matter differentiation is preserved. No extra-axial fluid collection is seen. Thoracic aorta: Visualized portions of the thoracic aorta are normal in caliber. The aortic arch demonstrates standard 3-vessel anatomy. Right carotid arterial system: The right common carotid artery is widely patent, as are the right internal and external carotid arteries. Left carotid arterial system: The left common carotid artery is widely patent, as are the left internal and external carotid arteries. Vertebral arteries: The vertebral arteries are widely patent bilaterally and codominant. No dissection is seen. Subclavian arteries: Widely patent bilaterally. Intracranial vasculature: The internal carotid arteries are patent at the skull base, as are the anterior and middle cerebral arteries bilaterally. The vertebrobasilar system and posterior cerebral arteries are widely patent. The vertebral arteries are codominant. There is no aneurysm, high-grade stenosis, or focal vessel cut off seen throughout the intracranial circulation. Jugular veins: Patent bilaterally. Dural sinuses: Patent. Lung apices: Partially visualized upper lobe lung parenchyma appears clear. Soft tissues: The visualized pharyngeal soft tissues are normal in appearance noting angiographic phase technique. The oropharyngeal airway appears widely patent. The salivary and thyroid glands are normal in appearance. No cervical lymphadenopathy is seen. Skeletal structures: The calvarium appears intact. The cervical spine is within normal limits. Orbits: The bony orbits are intact. Orbital contents are normal as visualized. Sinuses and mastoids: The paranasal sinuses are clear. There is trace right mastoid effusion. The left mastoid air cells are well pneumatized. IMPRESSION: 1. There is no hemorrhage, mass effect, or evidence of acute territorial ischemia by CT criteria. 2. Unremarkable CT angiogram of the brain. 3. Unremarkable CT angiogram of the neck. ACT 112: Negative or not required by law. Electronically signed by: Kaleb Bernard M.D. 05/27/2022 11:21 PM Head CTA 05/27/22 22:[address] OF THE BRAIN; CT ANGIOGRAM OF THE BRAIN; CT ANGIOGRAM OF THE NECK CLINICAL HISTORY: Strokelike symptoms. COMPARISON STUDY: No priors. TECHNIQUE: Unenhanced axial CT scan of the brain is performed. Subsequently, following the IV administration of 111 of Optiray 320, CT angiogram of the head and neck was performed from the aortic arch to the vertex. Images are reviewed in the axial, sagittal, and coronal planes. 3-D MIPS images are created and assessed. IV contrast was administered without complication. All measurements were calculated based on NASCET criteria. A dose lowering technique was utilized adhering to the principles of ALARA. CT DOSE: 1034.23 mGy.cm FINDINGS: Brain parenchyma: The brain parenchyma is normal in appearance. There is no hemorrhage, mass effect, or evidence of acute territorial ischemia by CT criteria. There is no evidence of enhancing mass lesion on the angiogram phase images. The ventricles, sulci, and cisterns are normal in configuration. Jimenez- white matter differentiation is preserved. No extra-axial fluid collection is seen. Thoracic aorta: Visualized portions of the thoracic aorta are normal in caliber. The aortic arch demonstrates standard 3-vessel anatomy. Right carotid arterial system: The right common carotid artery is widely patent, as are the right internal and external carotid arteries. Left carotid arterial system: The left common carotid artery is widely patent, as are the left internal and external carotid arteries. Vertebral arteries: The vertebral arteries are widely patent bilaterally and codominant. No dissection is seen. Subclavian arteries: Widely patent bilaterally. Intracranial vasculature: The internal carotid arteries are patent at the skull base, as are the anterior and middle cerebral arteries bilaterally. The vertebrobasilar system and posterior cerebral arteries are widely patent. The vertebral arteries are codominant. There is no aneurysm, high-grade stenosis, or focal vessel cut off seen throughout the intracranial circulation. Jugular veins: Patent bilaterally. Dural sinuses: Patent. Lung apices: Partially visualized upper lobe lung parenchyma appears clear. Soft tissues: The visualized pharyngeal soft tissues are normal in appearance noting angiographic phase technique. The oropharyngeal airway appears widely patent. The salivary and thyroid glands are normal in appearance. No cervical lymphadenopathy is seen. Skeletal structures: The calvarium appears intact. The cervical spine is within normal limits. Orbits: The bony orbits are intact. Orbital contents are normal as visualized. Sinuses and mastoids: The paranasal sinuses are clear. There is trace right mastoid effusion. The left mastoid air cells are well pneumatized. IMPRESSION: 1. There is no hemorrhage, mass effect, or evidence of acute territorial ischemia by CT criteria. 2. Unremarkable CT angiogram of the brain. 3. Unremarkable CT angiogram of the neck. ACT 112: Negative or not required by law. Electronically signed by: Kaleb Bernard M.D. 05/27/2022 11:21 PM Neck CTA 05/27/22 22:[address] OF THE BRAIN; CT ANGIOGRAM OF THE BRAIN; CT ANGIOGRAM OF THE NECK CLINICAL HISTORY: Strokelike symptoms. COMPARISON STUDY: No priors. TECHNIQUE: Unenhanced axial CT scan of the brain is performed. Subsequently, following the IV administration of 111 of Optiray 320, CT angiogram of the head and neck was performed from the aortic arch to the vertex. Images are reviewed in the axial, sagittal, and coronal planes. 3-D MIPS images are created and assessed. IV contrast was administered without complication. All measurements were calculated based on NASCET criteria. A dose lowering technique was utilized adhering to the principles of ALARA. CT DOSE: 1034.23 mGy.cm FINDINGS: Brain parenchyma: The brain parenchyma is normal in appearance. There is no hemorrhage, mass effect, or evidence of acute territorial ischemia by CT criteria. There is no evidence of enhancing mass lesion on the angiogram phase images. The ventricles, sulci, and cisterns are normal in configuration. Jimenez- white matter differentiation is preserved. No extra-axial fluid collection is seen. Thoracic aorta: Visualized portions of the thoracic aorta are normal in caliber. The aortic arch demonstrates standard 3-vessel anatomy. Right carotid arterial system: The right common carotid artery is widely patent, as are the right internal and external carotid arteries. Left carotid arterial system: The left common carotid artery is widely patent, as are the left internal and external carotid arteries. Vertebral arteries: The vertebral arteries are widely patent bilaterally and codominant. No dissection is seen. Subclavian arteries: Widely patent bilaterally. Intracranial vasculature: The internal carotid arteries are patent at the skull base, as are the anterior and middle cerebral arteries bilaterally. The vertebrobasilar system and posterior cerebral arteries are widely patent. The vertebral arteries are codominant. There is no aneurysm, high-grade stenosis, or focal vessel cut off seen throughout the intracranial circulation. Jugular veins: Patent bilaterally. Dural sinuses: Patent. Lung apices: Partially visualized upper lobe lung parenchyma appears clear. Soft tissues: The visualized pharyngeal soft tissues are normal in appearance noting angiographic phase technique. The oropharyngeal airway appears widely patent. The salivary and thyroid glands are normal in appearance. No cervical lymphadenopathy is seen. Skeletal structures: The calvarium appears intact. The cervical spine is within normal limits. Orbits: The bony orbits are intact. Orbital contents are normal as visualized. Sinuses and mastoids: The paranasal sinuses are clear. There is trace right mastoid effusion. The left mastoid air cells are well pneumatized. IMPRESSION: 1. There is no hemorrhage, mass effect, or evidence of acute territorial ischemia by CT criteria. 2. Unremarkable CT angiogram of the brain. 3. Unremarkable CT angiogram of the neck. ACT 112: Negative or not required by law. Electronically signed by: Kaleb Bernard M.D. 05/27/2022 11:21 PM Diagnostic Findings EKG as per my interpretation : Rate 55, sinus bradycardia, LAD, LAFB, no ischemia
[2022-05-28] MEDS: LEVOTHYROXINE SODIUM 150 MCG TABLET PO SCH (05:50)
[2022-05-28 07:20] LABS: Basophils # (auto) 0.04 K/uL (0-0.2); Basophils % (auto) 0.8 %; Eosinophils # (auto) 0.05 K/uL (0-0.50); Hematocrit (blood only) 39.5 % (34.1-44.9); Hemoglobin 13.1 g/dl (12.0-16.0); Immature Granulocytes # (auto) 0.01 K/uL (0.00-0.02); Immature Granulocytes % (auto) 0.2 %; Lymphocytes # (auto) 2.08 K/uL (1.2-3.4); Lymphocytes % (auto) 39.6 %; Mean Corpuscular Hemoglobin 32.3 pg (25.0-34.0); Mean Corpuscular Hgb Conc 33.2 g/dL (32.0-36.0); Mean Corpuscular Volume 97.5 fL (80.0-100.0); Mean Platelet Volume 10.9 fL (9.4-12.3); Monocytes # (auto) 0.44 K/uL (0.24-0.82); Monocytes % (auto) 8.4 %; Neutrophils # (auto) 2.63 K/uL (1.4-6.5); Platelet Count 178 K/uL (130-400); RDW Coefficient of Variation 13.9 % (11.5-14.5); RDW Standard Deviation 49.7 fL (36.4-46.3); Red Blood Count 4.05 M/uL (3.93-5.22); White Blood Count 5.25 K/ul (4.8-10.8)
--- NOTE | 2022-05-28 07:23 | XRay Report ---
XR cervical spine 2 or 3V CLINICAL HISTORY: Posterior neck pain. COMPARISON STUDY: CTA of the neck May 27, 2022. FINDINGS: Alignment of the cervical spine is anatomic. Vertebral body heights are maintained. Mild mu ltilevel degenerative changes are present with slight disc space narrowing osteophytosis. No fracture is present. IMPRESSION: 1. No cervical spine fracture or subluxation. 2. Mild multilevel degenerative changes within the cervical spine. ACT 112: Negative or not required by law. Electronically signed by: Isaac Cruz M.D. 05/28/2022 7:21 AM
[2022-05-28 07:52] LABS: BUN Creatinine Ratio 16.4 (10-20); Chol HDL Ratio 3.6 (0-5); Creatinine Clr Calc Pharmacy 92.9 ml/min; Est GFR (African American) 122.2 ml/min; Est GFR (Non-African American) 105.4 ml/min; Potassium 4.6 mmol/L (3.5-5.1)
[2022-05-28] MEDS: ENOXAPARIN INJ 40 MG/0.4 ML SYR SQ SCH (09:07)
[2022-05-28] MEDS: PANTOprazole 40 MG TAB PO SCH (09:07)
[2022-05-28] MEDS: MULTIVITAMIN TAB PO SCH (09:07)
[2022-05-28] MEDS: SERTRALINE HCL 50 MG TABLET PO SCH (09:07)
[2022-05-28] MEDS ORDERED: GADOBUTROL 65ML VIAL IV ONE (09:47)
--- NOTE | 2022-05-28 10:05 | Magnetic Resonance Report ---
MRI OF THE BRAIN WITHOUT AND WITH IV CONTRAST CLINICAL HISTORY: Headache. Transient ischemic attack. COMPARISON STUDY: Head CT and CTA of the head May 27, 2022. TECHNIQUE: Utilizing a 1.5 Abby magnet and dedicated coil, multiplanar, multiecho imaging of the br ain was performed pre and postcontrast administration. IV administration of 7 mL of Gadavist contras t was uneventful. FINDINGS: There are no foci of restricted diffusion to suggest acute infarct. No acute intracranial h emorrhage, midline shift or mass effect is present. Brain volume is normal. Ventricular system is nor mal. Basal cisterns are patent. There are no extra-axial collections. Flow-voids for the major intrac ranial vessels are present. There is a 1 cm enhancing extra-axial lesion overlying the superior right frontal lobe shown on coronal T1 postcontrast image 14 of . This favors a small meningioma. No add itional intracranial masses are present. No significant proximal signal abnormality is noted. There i s a punctate subcortical T2 hyperintense focus within the right frontal lobe on coronal FLAIR image 7 of . IMPRESSION: 1. No acute intracranial findings. No evidence for acute infarction. 2. 1 cm enhancing extra-axial lesion overlying the superior right frontal lobe. This favors a small m eningioma. A follow-up MRI of the brain with and without contrast 6 months is recommended. ACT 112: Negative or not required by law. Electronically signed by: Isaac Cruz M.D. 05/28/2022 10:02 AM
--- NOTE | 2022-05-28 13:07 | Neurology Consultation ---
Date of Consultation May 28, 2022 Assessment & Plan (1) Complicated migraine with status migrainosus: Impression: The patient has long history of frequent migraines, which has been well controlled on topiramate. However, recently, she has been under stress, with sleep deprivation, and had an episode with severe throbbing headache and associated neurological symptoms. Work-up including brain MRI has been unremarkable and did not show any cerebrovascular accident. Her symptoms including headache and left-sided sensorimotor symptoms have been subsiding gradually. She denies having any similar neurological symptoms with prior migraine attacks, and needed further work-up to rule out cerebrovascular accident. She has no history to suggest hypercoagulable state, or vasculitis. No family history of early age stroke. She denies recent head and neck trauma. Based on negative work-up and history of migraine headaches, current episode is most likely due to complicated migraine with status migrainosus. Recommendations: I agree with stroke work-up including echocardiogram. We can stop the aspirin as stroke work-up has been negative. We should increase topiramate dosage to 100 mg at bedtime. Dosage will be adjusted as needed, by her neurologist in the future. For abortive treatment, we should avoid using triptans. She will use Excedrin Migraine as needed in order to face of migraine attack. After echocardiogram, she can be discharged home. Follow-up with Dr. Hightower at neurology clinic. (2) Acute left-sided weakness: Impression: As seen above. (3) Paresthesia of left arm and leg: Impression: As seen above. (4) Slurred speech: Impression: As seen above. (5) Intracranial meningioma: Impression: Brain MRI showed incidental finding of small intracranial meningioma , without mass-effect. Recommendations: Follow-up brain MRI with and without contrast in 6 to 12 months Plan Thank you for the consultation. History of Present Illness Reason for Consultation: Left sided arm/leg heaviness and numbness with throbbing headache Requesting Physician: Agus Lopez MD Attending Physician: Agus Lopez MD History of Present Illness The patient is a 46-year-old female, who presented to emergency department with left arm and leg heaviness, left-sided paresthesia involving face, arm, and leg with initial short lasting episode of speech disturbance. She reports that recently, she was working extra hours, under stress, with some sleep deprivation. The day before yesterday, around dinnertime, the patient was feeling exhausted, confused then noticed nausea and had an episode of expressive speech difficulty which lasted for 10 to 15 minutes. At the same time, she was suffering from throbbing, severe left-sided headache. She does not remember any visual symptoms including scotoma. She went to sleep, and woke up with persistent symptoms, which lasted whole day yesterday, and decided to come to emergency department. Head CT, CT angiogram of head and neck were unremarkable. The patient was admitted for further work-up. Following brain MRI did not show acute intracranial pathology including cerebrovascular accident but incidental finding of small meningioma. The patient has a long history of frequent migraine headaches. She has been followed by local neurologist, and her migraine frequency has been well controlled on topiramate. On current treatment, she has been getting only occasional migraine attacks, without any associated symptoms of weakness, numbness, or speech disturbance. Since admission, she has noticed improvement of headache severity from 10 to 5 out of 10. Her left-sided heaviness has been improved but she still feels left face and the left arm slight dysesthesia. EKG showed sinus rhythm. Echocardiogram is pending. Lipid panel was normal. The patient was started on aspirin on admission. She is currently on topiramate 50 mg at bedtime for migraine prevention. She does not use any abortive medications for migraine. She denies family history of early age strokes. She has no history to suggest abnormal blood clotting. She has not been on any new medications. She also denies any recent head and neck trauma. I have reviewed the patient's chart including imaging studies and visualized them personally. I have discussed the case with the patient and answer her questions in detail. Allergies Allergy/AdvReac Type Severity Reaction Status Date / Time No Known Allergies Allergy Unknown Verified 05/28/22 00:30 Home Medications Medication Instructions Recorded Confirmed Type levothyroxine 150 mcg tablet 150 mcg PO DAILY #90 tabs 02/16/22 05/27/22 Rx omeprazole 20 mg capsule,delayed 20 mg PO QAM 05/27/22 05/27/22 History release cholecalciferol (vitamin D3) 50 50 mcg PO DAILY 05/28/22 05/28/22 History mcg (2,000 unit) capsule (Vitamin D3) cyanocobalamin (vitamin B-12) 1,000 mcg IM UD 05/28/22 05/28/22 History 1,000 mcg/mL injection solution multivitamin (Multiple Vitamins 1 tab PO DAILY 05/28/22 05/28/22 History tablet) sertraline 100 mg tablet 50 mg PO DAILY 05/28/22 05/28/22 History topiramate 50 mg tablet 50 mg PO HS 05/28/22 05/28/22 History zinc gluconate 30 mg tablet 30 mg PO DAILY 05/28/22 05/28/22 History Patient History Medical History Fatigue Hypothyroidism Obesity Surgical History Gastric bypass status for obesity Family History Other Hypertension Social History Smoking Status: Never smoker Hx Alcohol Use: Yes Alcohol type: wine Hx Substance Use: No Preferred Language: Khmer Communication Ability: Effective 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 HENT: Normal exam with inspection. CV: Hearth rhythm is regular. Neck: Supple, no carotid bruits. Lungs: Non-labored and comfortable breathing. Abdomen: Soft, non-tender, non-distended. Skin: No rash or ecchymosis. Extremities: No edema or cyanosis NEUROLOGICAL EXAMINATION: Mental Status: Alert and oriented to place, person and time. Cranial Nerves: II-XII are intact. No nystagmus. Funduscopy: Normal looking optic discs. Motor: 5/5 in all extremities without asymmetry. DTRs: 2+ all. No Babinsky. Tone: Normal without spasticity or rigidity. Sensory: Intact to all sensory modalities other than slight altered sensation on left side of face and left arm. Coordination: No dysmetria with FTN testing. Speech: Fluent. Comprehension is intact. Gait: Normal. No ataxia or abnormal walking pattern. Musculoskeletal: Normal muscle bulk, no atrophy. Results & Data ([facility]) Vital Signs (Past 12 Hours) Vital Signs Temp Pulse Pulse Resp BP Pulse Ox O2 Del Method 05/28/22 09:30 Room Air 05/28/22 12:09 36.7 C 64 18 117/77 98 Room Air 05/28/22 08:03 36.6 C 63 18 94/62 L 96 Room Air 05/28/22 07:33 67 05/28/22 03:00 70 05/28/22 04:00 Room Air 05/28/22 02:56 36.3 C L 70 18 101/69 98 Room Air Laboratory Results Laboratory Results - last 24 hr 05/27/22 05/27/22 05/27/22 22:18 22:18 22:18 WBC 6.97 RBC 4.44 Hgb 14.3 Hct 43.0 MCV 96.8 MCH 32.2 MCHC 33.3 RDW Std Deviation 50.1 H RDW Coeff of Cirilo 14.0 Plt Count 196 MPV 10.6 Immature Gran % (Auto) 0.3 Neut % (Auto) 45.5 Lymph % (Auto) 44.9 Moca % (Auto) 7.2 Eos % (Auto) 1.1 Baso % (Auto) 1.0 Neut # (Auto) 3.17 Lymph # (Auto) 3.13 Moca # (Auto) 0.50 Eos # (Auto) 0.08 Baso # (Auto) 0.07 Immature Gran # (Auto) 0.02 PT 10.3 INR 1.0 APTT 27.8 PTT Ratio 1.0 Sodium 139 Potassium 4.3 Chloride 112 H Carbon Dioxide 21 Anion Gap 6 BUN 10 Creatinine 0.64 Est Cr Clr Drug Dosing 98.2 Est GFR ( Amer) 124.0 Est GFR (Non-Af Amer) 107.0 BUN/Creatinine Ratio 15.6 Glucose 88 Calcium 8.4 L Magnesium 1.9 Total Bilirubin 0.5 AST 33 ALT 33 Alkaline Phosphatase 138 H Troponin I High Sens < 2.3 Total Protein 7.2 Albumin 4.1 Globulin 3.1 Albumin/Globulin Ratio 1.3 Triglycerides Cholesterol LDL Cholesterol, Calc VLDL Cholesterol, Calc HDL Cholesterol Cholesterol/HDL Ratio TSH SARS-CoV-2, RNA, NAAT 05/27/22 05/28/22 05/28/22 22:18 00:42 07:03 WBC 5.25 RBC 4.05 Hgb 13.1 Hct 39.5 MCV 97.5 MCH 32.3 MCHC 33.2 RDW Std Deviation 49.7 H RDW Coeff of Cirilo 13.9 Plt Count 178 MPV 10.9 Immature Gran % (Auto) 0.2 Neut % (Auto) 50.0 Lymph % (Auto) 39.6 Moca % (Auto) 8.4 Eos % (Auto) 1.0 Baso % (Auto) 0.8 Neut # (Auto) 2.63 Lymph # (Auto) 2.08 Moca # (Auto) 0.44 Eos # (Auto) 0.05 Baso # (Auto) 0.04 Immature Gran # (Auto) 0.01 PT INR APTT PTT Ratio Sodium Potassium Chloride Carbon Dioxide Anion Gap BUN Creatinine Est Cr Clr Drug Dosing Est GFR ( Amer) Est GFR (Non-Af Amer) BUN/Creatinine Ratio Glucose Calcium Magnesium Total Bilirubin AST ALT Alkaline Phosphatase Troponin I High Sens Total Protein Albumin Globulin Albumin/Globulin Ratio Triglycerides Cholesterol LDL Cholesterol, Calc VLDL Cholesterol, Calc HDL Cholesterol Cholesterol/HDL Ratio TSH 0.588 SARS-CoV-2, RNA, NAAT NEGATIVE 05/28/22 07:03 WBC RBC Hgb Hct MCV MCH MCHC RDW Std Deviation RDW Coeff of Cirilo Plt Count MPV Immature Gran % (Auto) Neut % (Auto) Lymph % (Auto) Moca % (Auto) Eos % (Auto) Baso % (Auto) Neut # (Auto) Lymph # (Auto) Moca # (Auto) Eos # (Auto) Baso # (Auto) Immature Gran # (Auto) PT INR APTT PTT Ratio Sodium 141 Potassium 4.6 Chloride 114 H Carbon Dioxide 23 Anion Gap 4 BUN 11 Creatinine 0.67 Est Cr Clr Drug Dosing 92.9 Est GFR ( Amer) 122.2 Est GFR (Non-Af Amer) 105.4 BUN/Creatinine Ratio 16.4 Glucose 83 Calcium 8.0 L Magnesium Total Bilirubin AST ALT Alkaline Phosphatase Troponin I High Sens Total Protein Albumin Globulin Albumin/Globulin Ratio Triglycerides 59 Cholesterol 143 LDL Cholesterol, Calc 91 VLDL Cholesterol, Calc 12 HDL Cholesterol 40 Cholesterol/HDL Ratio 3.6 TSH SARS-CoV-2, RNA, NAAT Diagnostic Findings Head CT 05/27/22 22:[address] OF THE BRAIN; CT ANGIOGRAM OF THE BRAIN; CT ANGIOGRAM OF THE NECK CLINICAL HISTORY: Strokelike symptoms. COMPARISON STUDY: No priors. TECHNIQUE: Unenhanced axial CT scan of the brain is performed. Subsequently, following the IV administration of 111 of Optiray 320, CT angiogram of the head and neck was performed from the aortic arch to the vertex. Images are reviewed in the axial, sagittal, and coronal planes. 3-D MIPS images are created and assessed. IV contrast was administered without complication. All measurements were calculated based on NASCET criteria. A dose lowering technique was utilized adhering to the principles of ALARA. CT DOSE: 1034.23 mGy.cm FINDINGS: Brain parenchyma: The brain parenchyma is normal in appearance. There is no hemorrhage, mass effect, or evidence of acute territorial ischemia by CT criteria. There is no evidence of enhancing mass lesion on the angiogram phase images. The ventricles, sulci, and cisterns are normal in configuration. Jimenez- white matter differentiation is preserved. No extra-axial fluid collection is seen. Thoracic aorta: Visualized portions of the thoracic aorta are normal in caliber. The aortic arch demonstrates standard 3-vessel anatomy. Right carotid arterial system: The right common carotid artery is widely patent, as are the right internal and external carotid arteries. Left carotid arterial system: The left common carotid artery is widely patent, as are the left internal and external carotid arteries. Vertebral arteries: The vertebral arteries are widely patent bilaterally and codominant. No dissection is seen. Subclavian arteries: Widely patent bilaterally. Intracranial vasculature: The internal carotid arteries are patent at the skull base, as are the anterior and middle cerebral arteries bilaterally. The vertebrobasilar system and posterior cerebral arteries are widely patent. The vertebral arteries are codominant. There is no aneurysm, high-grade stenosis, or focal vessel cut off seen throughout the intracranial circulation. Jugular veins: Patent bilaterally. Dural sinuses: Patent. Lung apices: Partially visualized upper lobe lung parenchyma appears clear. Soft tissues: The visualized pharyngeal soft tissues are normal in appearance noting angiographic phase technique. The oropharyngeal airway appears widely patent. The salivary and thyroid glands are normal in appearance. No cervical lymphadenopathy is seen. Skeletal structures: The calvarium appears intact. The cervical spine is within normal limits. Orbits: The bony orbits are intact. Orbital contents are normal as visualized. Sinuses and mastoids: The paranasal sinuses are clear. There is trace right mastoid effusion. The left mastoid air cells are well pneumatized. IMPRESSION: 1. There is no hemorrhage, mass effect, or evidence of acute territorial ischemia by CT criteria. 2. Unremarkable CT angiogram of the brain. 3. Unremarkable CT angiogram of the neck. ACT 112: Negative or not required by law. Electronically signed by: Kaleb Bernard M.D. 05/27/2022 11:21 PM Head CTA 05/27/22 22:[address] OF THE BRAIN; CT ANGIOGRAM OF THE BRAIN; CT ANGIOGRAM OF THE NECK CLINICAL HISTORY: Strokelike symptoms. COMPARISON STUDY: No priors. TECHNIQUE: Unenhanced axial CT scan of the brain is performed. Subsequently, following the IV administration of 111 of Optiray 320, CT angiogram of the head and neck was performed from the aortic arch to the vertex. Images are reviewed in the axial, sagittal, and coronal planes. 3-D MIPS images are created and assessed. IV contrast was administered without complication. All measurements were calculated based on NASCET criteria. A dose lowering technique was utilized adhering to the principles of ALARA. CT DOSE: 1034.23 mGy.cm FINDINGS: Brain parenchyma: The brain parenchyma is normal in appearance. There is no hemorrhage, mass effect, or evidence of acute territorial ischemia by CT criteria. There is no evidence of enhancing mass lesion on the angiogram phase images. The ventricles, sulci, and cisterns are normal in configuration. Jimenez- white matter differentiation is preserved. No extra-axial fluid collection is seen. Thoracic aorta: Visualized portions of the thoracic aorta are normal in caliber. The aortic arch demonstrates standard 3-vessel anatomy. Right carotid arterial system: The right common carotid artery is widely patent, as are the right internal and external carotid arteries. Left carotid arterial system: The left common carotid artery is widely patent, as are the left internal and external carotid arteries. Vertebral arteries: The vertebral arteries are widely patent bilaterally and codominant. No dissection is seen. Subclavian arteries: Widely patent bilaterally. Intracranial vasculature: The internal carotid arteries are patent at the skull base, as are the anterior and middle cerebral arteries bilaterally. The vertebrobasilar system and posterior cerebral arteries are widely patent. The vertebral arteries are codominant. There is no aneurysm, high-grade stenosis, or focal vessel cut off seen throughout the intracranial circulation. Jugular veins: Patent bilaterally. Dural sinuses: Patent. Lung apices: Partially visualized upper lobe lung parenchyma appears clear. Soft tissues: The visualized pharyngeal soft tissues are normal in appearance noting angiographic phase technique. The oropharyngeal airway appears widely patent. The salivary and thyroid glands are normal in appearance. No cervical lymphadenopathy is seen. Skeletal structures: The calvarium appears intact. The cervical spine is within normal limits. Orbits: The bony orbits are intact. Orbital contents are normal as visualized. Sinuses and mastoids: The paranasal sinuses are clear. There is trace right mastoid effusion. The left mastoid air cells are well pneumatized. IMPRESSION: 1. There is no hemorrhage, mass effect, or evidence of acute territorial ischemia by CT criteria. 2. Unremarkable CT angiogram of the brain. 3. Unremarkable CT angiogram of the neck. ACT 112: Negative or not required by law. Electronically signed by: Kaleb Bernard M.D. 05/27/2022 11:21 PM Neck CTA 05/27/22 22:[address] OF THE BRAIN; CT ANGIOGRAM OF THE BRAIN; CT ANGIOGRAM OF THE NECK CLINICAL HISTORY: Strokelike symptoms. COMPARISON STUDY: No priors. TECHNIQUE: Unenhanced axial CT scan of the brain is performed. Subsequently, following the IV administration of 111 of Optiray 320, CT angiogram of the head and neck was performed from the aortic arch to the vertex. Images are reviewed in the axial, sagittal, and coronal planes. 3-D MIPS images are created and assessed. IV contrast was administered without complication. All measurements were calculated based on NASCET criteria. A dose lowering technique was utilized adhering to the principles of ALARA. CT DOSE: 1034.23 mGy.cm FINDINGS: Brain parenchyma: The brain parenchyma is normal in appearance. There is no hemorrhage, mass effect, or evidence of acute territorial ischemia by CT criteria. There is no evidence of enhancing mass lesion on the angiogram phase images. The ventricles, sulci, and cisterns are normal in configuration. Jimenez-white matter differentiation is preserved. No extra-axial fluid collection is seen. Thoracic aorta: Visualized portions of the thoracic aorta are normal in caliber. The aortic arch demonstrates standard 3-vessel anatomy. Right carotid arterial system: The right common carotid artery is widely patent, as are the right internal and external carotid arteries. Left carotid arterial system: The left common carotid artery is widely patent, as are the left internal and external carotid arteries. Vertebral arteries: The vertebral arteries are widely patent bilaterally and codominant. No dissection is seen. Subclavian arteries: Widely patent bilaterally. Intracranial vasculature: The internal carotid arteries are patent at the skull base, as are the anterior and middle cerebral arteries bilaterally. The vertebrobasilar system and posterior cerebral arteries are widely patent. The vertebral arteries are codominant. There is no aneurysm, high-grade stenosis, or focal vessel cut off seen throughout the intracranial circulation. Jugular veins: Patent bilaterally. Dural sinuses: Patent. Lung apices: Partially visualized upper lobe lung parenchyma appears clear. Soft tissues: The visualized pharyngeal soft tissues are normal in appearance noting angiographic phase technique. The oropharyngeal airway appears widely patent. The salivary and thyroid glands are normal in appearance. No cervical lymphadenopathy is seen. Skeletal structures: The calvarium appears intact. The cervical spine is within normal limits. Orbits: The bony orbits are intact. Orbital contents are normal as visualized. Sinuses and mastoids: The paranasal sinuses are clear. There is trace right mastoid effusion. The left mastoid air cells are well pneumatized. IMPRESSION: 1. There is no hemorrhage, mass effect, or evidence of acute territorial ischemia by CT criteria. 2. Unremarkable CT angiogram of the brain. 3. Unremarkable CT angiogram of the neck. ACT 112: Negative or not required by law. Electronically signed by: Kaleb Bernard M.D. 05/27/2022 11:21 PM Brain MRI 05/28/22 02:09 MRI OF THE BRAIN WITHOUT AND WITH IV CONTRAST CLINICAL HISTORY: Headache. Transient ischemic attack. COMPARISON STUDY: Head CT and CTA of the head May 27, 2022. TECHNIQUE: Utilizing a 1.5 Abby magnet and dedicated coil, multiplanar, multiecho imaging of the brain was performed pre and postcontrast administration. IV administration of 7 mL of Gadavist contrast was uneventful. FINDINGS: There are no foci of restricted diffusion to suggest acute infarct. No acute intracranial hemorrhage, midline shift or mass effect is present. Brain volume is normal. Ventricular system is normal. Basal cisterns are patent. There are no extra-axial collections. Flow-voids for the major intracranial vessels are present. There is a 1 cm enhancing extra-axial lesion overlying the superior right frontal lobe shown on coronal T1 postcontrast image 14 of . This favors a small meningioma. No additional intracranial masses are present. No significant proximal signal abnormality is noted. There is a punctate subcortical T2 hyperintense focus within the right frontal lobe on coronal FLAIR image . IMPRESSION: 1. No acute intracranial findings. No evidence for acute infarction. 2. 1 cm enhancing extra-axial lesion overlying the superior right frontal lobe. This favors a small meningioma. A follow-up MRI of the brain with and without contrast 6 months is recommended. ACT 112: Negative or not required by law. Electronically signed by: Isaac Cruz M.D. 05/28/2022 10:02 AM Cervical Spine X-Ray 05/28/22 02:10 XR cervical spine 2 or 3V CLINICAL HISTORY: Posterior neck pain. COMPARISON STUDY: CTA of the neck May 27, 2022. FINDINGS: Alignment of the cervical spine is anatomic. Vertebral body heights are maintained. Mild multilevel degenerative changes are present with slight disc space narrowing osteophytosis. No fracture is present. IMPRESSION: 1. No cervical spine fracture or subluxation. 2. Mild multilevel degenerative changes within the cervical spine. ACT 112: Negative or not required by law. Electronically signed by: Isaac Cruz M.D. 05/28/2022 7:21 AM
--- NOTE | 2022-05-28 14:07 | Hospitalist Progress Note ---
Date of Service May 28, 2022 Assessment & Plan (1) Headache: Plan: Complicated migraine with status migrainosus H/O Migraine CVA ruled out --MRI Brain:No acute intracranial findings. No evidence for acute infarction. 1 cm enhancing extra-axial lesion overlying the superior right frontal lobe. This favors a small meningioma. A follow-up MRI of the brain with and without contrast 6 months is recommended. --CTA Head/Neck: There is no hemorrhage, mass effect, or evidence of acute territorial ischemia by CT criteria. Unremarkable CT angiogram of the brain. Unremarkable CT angiogram of the neck. --ECHO pending -- Increased topiramate dose 200 mg at bedtime Appreciate neurology input Avoid triptans Excedrin Migraine as needed Needs follow-up with Neurology upon discharge PT/OT eval Meningioma Incidental finding on MRI MRI as above Needs repeat MRI in 6 months Hypothyroidism Continue levothyroxine H/O Gastric bypass Anxiety/mood disorder stable Continue home medications GERD on PPI DVT prophylaxis Lovenox SQ Code Status Full code Disposition Home Admission and Anticipated Discharge Date Admission Date: May 28, 2022 Subjective Patient is seen and examined at bedside Headache better when compared to yesterday Left-sided weakness resolved Denies any chest pain, dyspnea, dizziness, nausea, abdominal pain, numbness Review of Systems Review of Systems: All systems reviewed & are unremarkable except as noted in Subjective Physical Exam Physical Exam: Physical Exam: Vitals signs as noted above General Appearance:Moderately built and nourished, no apparent distress Head: normocephalic, Atraumatic Eyes: normal inspection, EOMI Neck: supple, Trachea midline Respiratory/Chest: Normal breath sounds, CTA, No accessory muscle use Cardiovascular: S1, S2, No murmur Abdomen/GI:Soft, Non tender, Bowel sounds present Extremities/Musculoskeletal:normal inspection, no edema Neurologic/Psych:AAOX3, grossly no focal neurological deficits Skin: normal color, warm Results & Data Results & Data ([facility]) Vital Signs (Past 12 Hours) Vital Signs Temp Pulse Pulse Resp BP Pulse Ox O2 Del Method 05/28/22 09:30 Room Air 05/28/22 12:09 36.7 C 64 18 117/77 98 Room Air 05/28/22 08:03 36.6 C 63 18 94/62 L 96 Room Air 05/28/22 07:33 67 05/28/22 03:00 70 05/28/22 04:00 Room Air 05/28/22 02:56 36.3 C L 70 18 101/69 98 Room Air Laboratory Results Short CBC 05/27/22 05/28/22 Range/Units 22:18 07:03 WBC 6.97 5.25 (4.8-10.8) K/ul Hgb 14.3 13.1 (12.0-16.0) g/dl Hct 43.0 39.5 (34.1-44.9) % Plt Count 196 178 (130-400) K/uL BMP 05/27/22 05/28/22 22:18 07:03 Sodium 139 141 Potassium 4.3 4.6 Chloride 112 H 114 H Carbon Dioxide 21 23 BUN 10 11 Creatinine 0.64 0.67 Glucose 88 83 Calcium 8.4 L 8.0 L Liver Function 05/27/22 Range/Units 22:18 Total Bilirubin 0.5 (0.2-1.0) mg/dl AST 33 (13-39) U/L ALT 33 (7-52) U/L Alkaline Phosphatase 138 H (34-104) U/L Albumin 4.1 (3.4-5.0) gm/dl
[2022-05-28] MEDS ORDERED: SODIUM CHLORIDE 0.45 % 1,000 ML IV ONE (20:15)
[2022-05-28] MEDS ORDERED: TOPIRAMATE 50 MG TAB PO SCH (21:00)
[2022-05-28] MEDS ORDERED: TOPIRAMATE 100 MG TAB PO SCH (21:00)
[2022-05-29] MEDS: LEVOTHYROXINE SODIUM 150 MCG TABLET PO SCH (04:49)
[2022-05-29 06:00] LABS: Basophils # (auto) 0.04 K/uL (0-0.2); Basophils % (auto) 0.8 %; Eosinophils # (auto) 0.07 K/uL (0-0.50); Eosinophils % (auto) 1.4 %; Hematocrit (blood only) 40.4 % (34.1-44.9); Hemoglobin 13.5 g/dl (12.0-16.0); Immature Granulocytes # (auto) 0.01 K/uL (0.00-0.02); Immature Granulocytes % (auto) 0.2 %; Lymphocytes # (auto) 2.23 K/uL (1.2-3.4); Lymphocytes % (auto) 44.3 %; Mean Corpuscular Hgb Conc 33.4 g/dL (32.0-36.0); Mean Corpuscular Volume 95.7 fL (80.0-100.0); Mean Platelet Volume 10.8 fL (9.4-12.3); Monocytes # (auto) 0.49 K/uL (0.24-0.82); Monocytes % (auto) 9.7 %; Neutrophils # (auto) 2.19 K/uL (1.4-6.5); Neutrophils % (auto) 43.6 %; Platelet Count 177 K/uL (130-400); RDW Coefficient of Variation 13.6 % (11.5-14.5); RDW Standard Deviation 48.1 fL (36.4-46.3); Red Blood Count 4.22 M/uL (3.93-5.22); White Blood Count 5.03 K/ul (4.8-10.8)
[2022-05-29 06:16] LABS: Basophils # (auto) 0.05 K/uL (0-0.2); Eosinophils # (auto) 0.05 K/uL (0-0.50); Hemoglobin 13.6 g/dl (12.0-16.0); Immature Granulocytes # (auto) 0.01 K/uL (0.00-0.02); Immature Granulocytes % (auto) 0.2 %; Lymphocytes # (auto) 2.17 K/uL (1.2-3.4); Lymphocytes % (auto) 42.8 %; Mean Corpuscular Hemoglobin 32.5 pg (25.0-34.0); Mean Corpuscular Volume 95.5 fL (80.0-100.0); Mean Platelet Volume 10.6 fL (9.4-12.3); Monocytes # (auto) 0.51 K/uL (0.24-0.82); Monocytes % (auto) 10.1 %; Neutrophils # (auto) 2.28 K/uL (1.4-6.5); Neutrophils % (auto) 44.9 %; Platelet Count 181 K/uL (130-400); RDW Coefficient of Variation 13.7 % (11.5-14.5); RDW Standard Deviation 47.9 fL (36.4-46.3); Red Blood Count 4.19 M/uL (3.93-5.22); White Blood Count 5.07 K/ul (4.8-10.8)
[2022-05-29 06:18] LABS: BUN Creatinine Ratio 25.4 (10-20); Creatinine Clr Calc Pharmacy 98.8 ml/min; Est GFR (African American) 124.7 ml/min; Est GFR (Non-African American) 107.6 ml/min; Potassium 3.7 mmol/L (3.5-5.1)
[2022-05-29 06:40] LABS: Anion Gap 4 (3-11); BUN Creatinine Ratio 25.8 (10-20); Blood Urea Nitrogen 16 mg/dl (6-23); Carbon Dioxide 22 mmol/L (21-32); Chloride 113 mmol/L (98-107); Creatinine Clr Calc Pharmacy 100.4 ml/min; Est GFR (African American) 125.3 ml/min; Est GFR (Non-African American) 108.1 ml/min; Glucose 79 mg/dl (70-99(Fasting)); Potassium 3.9 mmol/L (3.5-5.1); Sodium 139 mmol/L (136-145)
[2022-05-29 06:44] LABS: Troponin I High Sensitivity < 2.3 pg/ml (0-14)
[2022-05-29] MEDS: MULTIVITAMIN TAB PO SCH (07:55)
[2022-05-29] MEDS: PANTOprazole 40 MG TAB PO SCH (07:55)
[2022-05-29] MEDS: ENOXAPARIN INJ 40 MG/0.4 ML SYR SQ SCH (07:55)
[2022-05-29] MEDS: SERTRALINE HCL 50 MG TABLET PO SCH (07:55)
[2022-05-29] MEDS ORDERED: ASPIRIN 81 MG ECTAB PO SCH (09:00)
--- NOTE | 2022-05-29 11:51 | Hospitalist Progress Note ---
Date of Service May 29, 2022 Assessment & Plan (1) Headache: Plan: Complicated migraine with status migrainosus H/O Migraine CVA ruled out --MRI Brain:No acute intracranial findings. No evidence for acute infarction. 1 cm enhancing extra-axial lesion overlying the superior right frontal lobe. This favors a small meningioma. A follow-up MRI of the brain with and without contrast 6 months is recommended. --CTA Head/Neck: There is no hemorrhage, mass effect, or evidence of acute territorial ischemia by CT criteria. Unremarkable CT angiogram of the brain. Unremarkable CT angiogram of the neck. --ECHO: Normal left ventricular wall thickness. Left ventricle wall motion is normal. EF 64% right ventricle is normal in size and function. No significant valvular heart disease. No findings suggestive of pulmonary hypertension. -- Increased topiramate dose 200 mg at bedtime Appreciate neurology input Avoid triptans Excedrin Migraine as needed Advised to follow-up with Neurology upon discharge PT/OT evaluation completed Meningioma Incidental finding on MRI MRI as above Needs repeat MRI in 6 months Advised to follow up with Neurosurgery as outpatient Hypotension When checked manually blood pressure 110/ 58 Patient asymptomatic Not on any antihypertensive medications Hypothyroidism Continue levothyroxine H/O Gastric bypass Anxiety/mood disorder stable Continue home medications GERD on PPI DVT prophylaxis Lovenox SQ Code Status Full code Disposition Home Admission and Anticipated Discharge Date Admission Date: May 28, 2022 Subjective Patient is seen and examined at bedside States feeling better today No new complaints Headache improving Denies any chest pain, dyspnea, dizziness, nausea, abdominal pain, numbness Review of Systems Review of Systems: All systems reviewed & are unremarkable except as noted in Subjective Physical Exam Physical Exam: Physical Exam: Vitals signs as noted above General Appearance:Moderately built and nourished, no apparent distress Head: normocephalic, Atraumatic Eyes: normal inspection, EOMI Neck: supple, Trachea midline Respiratory/Chest: Normal breath sounds, CTA, No accessory muscle use Cardiovascular: S1, S2, No murmur Abdomen/GI:Soft, Non tender, Bowel sounds present Extremities/Musculoskeletal:normal inspection, no edema Neurologic/Psych:AAOX3, grossly no focal neurological deficits Skin: normal color, warm Results & Data Results & Data ([facility]) Vital Signs (Past 12 Hours) Vital Signs Temp Pulse Pulse Pulse Resp BP Pulse Ox 05/29/22 11:43 36.8 C 70 18 90/58 L 98 05/29/22 08:03 36.5 C 55 L 18 93/62 L 100 05/29/22 07:18 60 05/29/22 04:48 68 16 99/67 L 99 05/29/22 03:34 59 L 78/52 L 05/29/22 03:18 36.4 C L 67 18 97 O2 Del Method 05/29/22 11:43 Room Air 05/29/22 08:03 Room Air 05/29/22 07:18 05/29/22 04:48 Room Air 05/29/22 03:34 05/29/22 03:18 Room Air Laboratory Results Short CBC 05/29/22 05/29/22 Range/Units 05:14 06:00 WBC 5.03 5.07 (4.8-10.8) K/ul Hgb 13.5 13.6 (12.0-16.0) g/dl Hct 40.4 40.0 (34.1-44.9) % Plt Count 177 181 (130-400) K/uL BMP 05/29/22 05/29/22 05:14 06:00 Sodium 139 139 Potassium 3.7 3.9 Chloride 113 H 113 H Carbon Dioxide 20 L 22 BUN 16 16 Creatinine 0.63 0.62 Glucose 79 79 Calcium 8.0 L 8.0 L
--- NOTE | 2022-05-29 12:16 | Discharge Summary ---
Date of Service May 29, 2022 Admission HPI Per Admitting Provider History obtained from patient and records. Medical history significant for hypothyroidism, history of gastric bypass, migraine, anxiety/mood disorder. 2 days ago, patient noted transient aphasia symptoms, could not get words out, with left-sided weakness/numbness and achy left-sided headache, nausea symptoms different from migraine attack. Patient also noted posterior neck pain symptoms without radiation to the arms. Transient substernal chest pain complaints like her heart was going to drop. Aphasia and chest pain symptoms resolved after patient able to drink water given by . Headache symptoms persisted with some left-sided weakness. no prior episodes. No recent trauma. Patient called PCPs office yesterday. Patient directed to ER for further evaluation. Aspirin and IVF administered at the ER. Left-sided weakness currently improved as per patient. 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 [place] Admission Exam Per Admitting Provider Physical Exam Physical Exam: GENERAL: Comfortable, pleasant, obese, no respiratory distress SKIN: Normal color, warm HEENT: [place] palpebral conjunctivae, no ptosis, dry buccal mucosa NECK : Supple, short neck, minimal posterior cervical tenderness CHEST : CTA, no tenderness HEART : RRR, no obvious murmurs ABDOMEN: Some distention, nontender EXTREMITIES : No LE swelling/tenderness, no other conspicuous deformities noted NEUROLOGIC : Coherent, no facial asymmetry, BUE/BLE MMTs 5/5 Principal Diagnosis Complicated migraine with status migrainosus Meningioma Discharge Data Allergies Allergy/AdvReac Type Severity Reaction Status Date / Time No Known Allergies Allergy Unknown Verified 05/28/22 00:30 Consultations 05/28/22 00:55 ED Decision to Admit Stat 05/28/22 02:11 Consult Neurology Routine Procedures Performed Laboratory Results WBC 5.07 K/ul (4.8-10.8) 05/29/22 06:00 RBC 4.19 M/uL (3.93-5.22) 05/29/22 06:00 Hgb 13.6 g/dl (12.0-16.0) 05/29/22 06:00 Hct 40.0 % (34.1-44.9) 05/29/22 06:00 MCV 95.5 fL (80.0-100.0) 05/29/22 06:00 MCH 32.5 pg (25.0-34.0) 05/29/22 06:00 MCHC 34.0 g/dL (32.0-36.0) 05/29/22 06:00 RDW Std Deviation 47.9 fL (36.4-46.3) H 05/29/22 06:00 RDW Coeff of Cirilo 13.7 % (11.5-14.5) 05/29/22 06:00 Plt Count 181 K/uL (130-400) 05/29/22 06:00 MPV 10.6 fL (9.4-12.3) 05/29/22 06:00 Immature Gran % (Auto) 0.2 % 05/29/22 06:00 Neut % (Auto) 44.9 % 05/29/22 06:00 Lymph % (Auto) 42.8 % 05/29/22 06:00 Alcorn % (Auto) 10.1 % 05/29/22 06:00 Eos % (Auto) 1.0 % 05/29/22 06:00 Baso % (Auto) 1.0 % 05/29/22 06:00 Neut # (Auto) 2.28 K/uL (1.4-6.5) 05/29/22 06:00 Lymph # (Auto) 2.17 K/uL (1.2-3.4) 05/29/22 06:00 Alcorn # (Auto) 0.51 K/uL (0.24-0.82) 05/29/22 06:00 Eos # (Auto) 0.05 K/uL (0-0.50) 05/29/22 06:00 Baso # (Auto) 0.05 K/uL (0-0.2) 05/29/22 06:00 Immature Gran # (Auto) 0.01 K/uL (0.00-0.02) 05/29/22 06:00 PT 10.3 Seconds (9.0-12.0) 05/27/22 22:18 INR 1.0 (0.9-1.1) 05/27/22 22:18 APTT 27.8 Seconds (21.0-31.0) 05/27/22 22:18 PTT Ratio 1.0 05/27/22 22:18 Sodium 139 mmol/L (136-145) 05/29/22 06:00 Potassium 3.9 mmol/L (3.5-5.1) 05/29/22 06:00 Chloride 113 mmol/L (98-107) H 05/29/22 06:00 Carbon Dioxide 22 mmol/L (21-32) 05/29/22 06:00 Anion Gap 4 (3-11) 05/29/22 06:00 BUN 16 mg/dl (6-23) 05/29/22 06:00 Creatinine 0.62 mg/dl (0.6-1.2) 05/29/22 06:00 Est Cr Clr Drug Dosing 100.4 ml/min 05/29/22 06:00 Est GFR ( Amer) 125.3 ml/min 05/29/22 06:00 Est GFR (Non-Af Amer) 108.1 ml/min 05/29/22 06:00 BUN/Creatinine Ratio 25.8 (10-20) H 05/29/22 06:00 Glucose 79 mg/dl (70-99(Fasting)) 05/29/22 06:00 Lactate 0.7 mmol/L (0.4-2.0) 05/29/22 06:00 Calcium 8.0 mg/dl (8.5-10.1) L 05/29/22 06:00 Magnesium 2.0 mg/dl (1.7-2.4) 05/29/22 06:00 Total Bilirubin 0.5 mg/dl (0.2-1.0) 05/27/22 22:18 AST 33 U/L (13-39) 05/27/22 22:18 ALT 33 U/L (7-52) 05/27/22 22:18 Alkaline Phosphatase 138 U/L (34-104) H 05/27/22 22:18 Troponin I High Sens < 2.3 pg/ml (0-14) 05/29/22 06:00 Total Protein 7.2 gm/dl (6.0-8.3) 05/27/22 22:18 Albumin 4.1 gm/dl (3.4-5.0) 05/27/22 22:18 Globulin 3.1 gm/dl (2.5-4.0) 05/27/22 22:18 Albumin/Globulin Ratio 1.3 (0.9-2) 05/27/22 22:18 Triglycerides 59 mg/dl (0-150) 05/28/22 07:03 Cholesterol 143 mg/dl (0-200) 05/28/22 07:03 LDL Cholesterol, Calc 91 mg/dl 05/28/22 07:03 VLDL Cholesterol, Calc 12 mg/dl (0-30) 05/28/22 07:03 HDL Cholesterol 40 mg/dl 05/28/22 07:03 Cholesterol/HDL Ratio 3.6 (0-5) 05/28/22 07:03 TSH 0.588 uIu/ml (0.300-4.500) 05/27/22 22:18 SARS-CoV-2, RNA, NAAT NEGATIVE (NEGATIVE) 05/28/22 00:[address] 05/27/22 22:[address] OF THE BRAIN; CT ANGIOGRAM OF THE BRAIN; CT ANGIOGRAM OF THE NECK CLINICAL HISTORY: Strokelike symptoms. COMPARISON STUDY: No priors. TECHNIQUE: Unenhanced axial CT scan of the brain is performed. Subsequently, following the IV administration of 111 of Optiray 320, CT angiogram of the head and neck was performed from the aortic arch to the vertex. Images are reviewed in the axial, sagittal, and coronal planes. 3-D MIPS images are created and as sessed. IV contrast was administered without complication. All measurements were calculated based on NASCET criteria. A dose lowering technique was utilized adhering to the principles of ALARA. CT DOSE: 1034.23 mGy.cm FINDINGS: Brain parenchyma: The brain parenchyma is normal in appearance. There is no hemorrhage, mass effect, or evidence of acute territorial ischemia by CT criteria. There is no evidence of enhancing mass lesion on the angiogram phase images. The ventricles, sulci, and cisterns are normal in configuration. Jimenez- white matter differentiation is preserved. No extra-axial fluid collection is seen. Thoracic aorta: Visualized portions of the thoracic aorta are normal in caliber. The aortic arch demonstrates standard 3-vessel anatomy. Right carotid arterial system: The right common carotid artery is widely patent, as are the right internal and external carotid arteries. Left carotid arterial system: The left common carotid artery is widely patent, as are the left internal and external carotid arteries. Vertebral arteries: The vertebral arteries are widely patent bilaterally and codominant. No dissection is seen. Subclavian arteries: Widely patent bilaterally. Intracranial vasculature: The internal carotid arteries are patent at the skull base, as are the anterior and middle cerebral arteries bilaterally. The vertebrobasilar system and posterior cerebral arteries are widely patent. The vertebral arteries are codominant. There is no aneurysm, high-grade stenosis, or focal vessel cut off seen throughout the intracranial circulation. Jugular veins: Patent bilaterally. Dural sinuses: Patent. Lung apices: Partially visualized upper lobe lung parenchyma appears clear. Soft tissues: The visualized pharyngeal soft tissues are normal in appearance noting angiographic phase technique. The oropharyngeal airway appears widely patent. The salivary and thyroid glands are normal in appearance. No cervical lymphadenopathy is seen. Skeletal structures: The calvarium appears intact. The cervical spine is within normal limits. Orbits: The bony orbits are intact. Orbital contents are normal as visualized. Sinuses and mastoids: The paranasal sinuses are clear. There is trace right mastoid effusion. The left mastoid air cells are well pneumatized. IMPRESSION: 1. There is no hemorrhage, mass effect, or evidence of acute territorial i schemia by CT criteria. 2. Unremarkable CT angiogram of the brain. 3. Unremarkable CT angiogram of the neck. ACT 112: Negative or not required by law. Electronically signed by: Kaleb Bernard M.D. 05/27/2022 11:21 PM Head CTA 05/27/22 22:[address] OF THE BRAIN; CT ANGIOGRAM OF THE BRAIN; CT ANGIOGRAM OF THE NECK CLINICAL HISTORY: Strokelike symptoms. COMPARISON STUDY: No priors. TECHNIQUE: Unenhanced axial CT scan of the brain is performed. Subsequently, following the IV administration of 111 of Optiray 320, CT angiogram of the head and neck was performed from the aortic arch to the vertex. Images are reviewed in the axial, sagittal, and coronal planes. 3-D MIPS images are created and assessed. IV contrast was administered without complication. All measurements were calculated based on NASCET criteria. A dose lowering technique was utilized adhering to the principles of ALARA. CT DOSE: 1034.23 mGy.cm FINDINGS: Brain parenchyma: The brain parenchyma is normal in appearance. There is no hemorrhage, mass effect, or evidence of acute territorial ischemia by CT criteria. There is no evidence of enhancing mass lesion on the angiogram phase images. The ventricles, sulci, and cisterns are normal in configuration. Jimenez- white matter differentiation is preserved. No extra-axial fluid collection is seen. Thoracic aorta: Visualized portions of the thoracic aorta are normal in caliber. The aortic arch demonstrates standard 3-vessel anatomy. Right carotid arterial system: The right common carotid artery is widely patent, as are the right internal and external carotid arteries. Left carotid arterial system: The left common carotid artery is widely patent, as are the left internal and external carotid arteries. Vertebral arteries: The vertebral arteries are widely patent bilaterally and codominant. No dissection is seen. Subclavian arteries: Widely patent bilaterally. Intracranial vasculature: The internal carotid arteries are patent at the skull base, as are the anterior and middle cerebral arteries bilaterally. The vertebrobasilar system and posterior cerebral arteries are widely patent. The vertebral arteries are codominant. There is no aneurysm, high-grade stenosis, or focal vessel cut off seen throughout the intracranial circulation. Jugular veins: Patent bilaterally. Dural sinuses: Patent. Lung apices: Partially visualized upper lobe lung parenchyma appears clear. Soft tissues: The visualized pharyngeal soft tissues are normal in appearance noting angiographic phase technique. The oropharyngeal airway appears widely patent. The salivary and thyroid glands are normal in appearance. No cervical lymphadenopathy is seen. Skeletal structures: The calvarium appears intact. The cervical spine is within normal limits. Orbits: The bony orbits are intact. Orbital contents are normal as visualized. Sinuses and mastoids: The paranasal sinuses are clear. There is trace right mas toid effusion. The left mastoid air cells are well pneumatized. IMPRESSION: 1. There is no hemorrhage, mass effect, or evidence of acute territorial ischemia by CT criteria. 2. Unremarkable CT angiogram of the brain. 3. Unremarkable CT angiogram of the neck. ACT 112: Negative or not required by law. Electronically signed by: Kaleb Bernard M.D. 05/27/2022 11:21 PM Neck CTA 05/27/22 22:[address] OF THE BRAIN; CT ANGIOGRAM OF THE BRAIN; CT ANGIOGRAM OF THE NECK CLINICAL HISTORY: Strokelike symptoms. COMPARISON STUDY: No priors. TECHNIQUE: Unenhanced axial CT scan of the brain is performed. Subsequently, following the IV administration of 111 of Optiray 320, CT angiogram of the head and neck was performed from the aortic arch to the vertex. Images are reviewed in the axial, sagittal, and coronal planes. 3-D MIPS images are created and assessed. IV contrast was administered without complication. All measurements were calculated based on NASCET criteria. A dose lowering technique was utilized adhering to the principles of ALARA. CT DOSE: 1034.23 mGy.cm FINDINGS: Brain parenchyma: The brain parenchyma is normal in appearance. There is no hemorrhage, mass effect, or evidence of acute territorial ischemia by CT criteria. There is no evidence of enhancing mass lesion on the angiogram phase images. The ventricles, sulci, and cisterns are normal in configuration. Jimenez- white matter differentiation is preserved. No extra-axial fluid collection is seen. Thoracic aorta: Visualized portions of the thoracic aorta are normal in caliber. The aortic arch demonstrates standard 3-vessel anatomy. Right carotid arterial system: The right common carotid artery is widely patent, as are the right internal and external carotid arteries. Left carotid arterial system: The left common carotid artery is widely patent, as are the left internal and external carotid arteries. Vertebral arteries: The vertebral arteries are widely patent bilaterally and codominant. No dissection is seen. Subclavian arteries: Widely patent bilaterally. Intracranial vasculature: The internal carotid arteries are patent at the skull base, as are the anterior and middle cerebral arteries bilaterally. The vertebrobasilar system and posterior cerebral arteries are widely patent. The vertebral arteries are codominant. There is no aneurysm, high-grade stenosis, or focal vessel cut off seen throughout the intracranial circulation. Jugular veins: Patent bilaterally. Dural sinuses: Patent. Lung apices: Partially visualized upper lobe lung parenchyma appears clear. Soft tissues: The visualized pharyngeal soft tissues are normal in appearance noting angiographic phase technique. The oropharyngeal airway appears widely patent. The salivary and thyroid glands are normal in appearance. No cervical lymphadenopathy is seen. Skeletal structures: The calvarium appears intact. The cervical spine is within normal limits. Orbits: The bony orbits are intact. Orbital contents are normal as visualized. Sinuses and mastoids: The paranasal sinuses are clear. There is trace right mastoid effusion. The left mastoid air cells are well pneumatized. IMPRESSION: 1. There is no hemorrhage, mass effect, or evidence of acute territorial ischemia by CT criteria. 2. Unremarkable CT angiogram of the brain. 3. Unremarkable CT angiogram of the neck. ACT 112: Negative or not required by law. Electronically signed by: Kaleb Bernard M.D. 05/27/2022 11:21 PM Brain MRI 05/28/22 02:09 MRI OF THE BRAIN WITHOUT AND WITH IV CONTRAST CLINICAL HISTORY: Headache. Transient ischemic attack. COMPARISON STUDY: Head CT and CTA of the head May 27, 2022. TECHNIQUE: Utilizing a 1.5 Abby magnet and dedicated coil, multiplanar, multiecho imaging of the brain was performed pre and postcontrast administration. IV administration of 7 mL of Gadavist contrast was uneventful. FINDINGS: There are no foci of restricted diffusion to suggest acute infarct. No acute intracranial hemorrhage, midline shift or mass effect is present. Brain volume is normal. Ventricular system is normal. Basal cisterns are patent. There are no extra-axial collections. Flow-voids for the major intracranial vessels are present. There is a 1 cm enhancing extra-axial lesion overlying the superior right frontal lobe shown on coronal T1 postcontrast image 14 of 26. This favors a small meningioma. No additional intracranial masses are present. No significant proximal signal abnormality is noted. There is a punctate subcortical T2 hyperintense focus within the right frontal lobe on coronal FLAIR image 7 of 26. IMPRESSION: 1. No acute intracranial findings. No evidence for acute infarction. 2. 1 cm enhancing extra-axial lesion overlying the superior right frontal lobe. This favors a small meningioma. A follow-up MRI of the brain with and without contrast 6 months is recommended. ACT 112: Negative or not required by law. Electronically signed by: Isaac Cruz M.D. 05/28/2022 10:02 AM Cervical Spine X-Ray 05/28/22 02:10 XR cervical spine 2 or 3V CLINICAL HISTORY: Posterior neck pain. COMPARISON STUDY: CTA of the neck May 27, 2022. FINDINGS: Alignment of the cervical spine is anatomic. Vertebral body heights are maintained. Mild multilevel degenerative changes are present with slight disc space narrowing osteophytosis. No fracture is present. IMPRESSION: 1. No cervical spine fracture or subluxation. 2. Mild multilevel degenerative changes within the cervical spine. ACT 112: Negative or not required by law. Electronically signed by: Isaac Cruz M.D. 05/28/2022 7:21 AM Ordered Studies 05/27/22 22:09 CT angio head w con Stat CT angio neck with con Stat CT head/brain wo con Stat 05/28/22 02:09 MRI Brain [MR brain wo/w con] Routine Hospital Course (1) Headache: Complicated migraine with status migrainosus H/O Migraine CVA ruled out --MRI Brain:No acute intracranial findings. No evidence for acute infarction. 1 cm enhancing extra-axial lesion overlying the superior right frontal lobe. This favors a small meningioma. A follow-up MRI of the brain with and without contrast 6 months is recommended. --CTA Head/Neck: There is no hemorrhage, mass effect, or evidence of acute territorial ischemia by CT criteria. Unremarkable CT angiogram of the brain. Unremarkable CT angiogram of the neck. --ECHO: Normal left ventricular wall thickness. Left ventricle wall motion is normal. EF 64% right ventricle is normal in size and function. No significant valvular heart disease. No findings suggestive of pulmonary hypertension. -- Increased topiramate dose 200 mg at bedtime Appreciate neurology input Avoid triptans Excedrin Migraine as needed Advised to follow-up with Neurology upon discharge PT/OT evaluation completed Meningioma Incidental finding on MRI MRI as above Needs repeat MRI in 6 months Advised to follow up with Neurosurgery as outpatient Hypotension When checked manually blood pressure 110/ 58 Patient asymptomatic Not on any antihypertensive medications Hypothyroidism Continue levothyroxine H/O Gastric bypass Anxiety/mood disorder stable Continue home medications GERD on PPI DVT prophylaxis Lovenox SQ Code Status Full code Disposition Home Total Time Total Time Spent Total Time Spent (In Minutes): 48 minutes Discharge Plan Discharge Items Patient Disposition: Home - Self-Care Reason For Visit: TIA Discharge Diagnosis: Complicated migraine with status migrainosus Meningioma Activity: Per Instructions section Exercise/Sports: Gradually increase as tolerated Non-emergency contact: Primary Care Provider and Neurologist Call non-emergency contact if: you have any medication questions, your pain is concerning for you and you have a fever Follow-up/Referrals: Alton Kerns MD [Primary Care Provider] - Diet: Regular Addtl Attending Provider Instructions: Follow-up with your primary care physician in 1 week Follow-up with your neurologist Dr. Mata in 2-4 weeks as advised Consider following with Neurosurgeon for further evaluation of Meningioma as advised -- Your topiramate is increased to 100 mg at bedtime as advised by your neurologist --Can use use Excedrin Migraine as needed go migraine attacks. --Get Repeat MRI brain in 6 months for re-evaluation of Meningioma. Seek immediate medical attention if your symptoms reoccur or worsen Please take all medications as instructed on discharge list below. Please call if you have any questions or problems. You can reach a [facility] hospitalist on duty at [facility] 24 hours a day by calling [phone] Pending Studies at Discharge: No Stand-Alone Forms: My [facility], Smoking Cessation Medications and DC Order Prescriptions: New topiramate 100 mg Tablet 100 mg PO HS Qty: 30 1RF Continued levothyroxine 150 mcg tablet 150 mcg PO DAILY Qty: 90 3RF omeprazole 20 mg capsule,delayed release(DR/EC) 20 mg PO QAM cyanocobalamin (vitamin B-12) [Vitamin B-12] 1,000 mcg/mL Solution 1,000 mcg IM UD cholecalciferol (vitamin D3) [Vitamin D3] 50 mcg (2,000 unit) Capsule 50 mcg PO DAILY multivitamin [Multiple Vitamins] Tablet 1 tab PO DAILY sertraline 100 mg tablet 50 mg PO DAILY zinc gluconate 30 mg Tablet 30 mg PO DAILY Discontinued topiramate 50 mg tablet 50 mg PO HS Discharge Orders: Discharge Order (Routine); Ordered 05/29/22 Ordered By: Agus Lopez Admission Data Admit Date/Time: 05/28/22 02:06 Attending Provider: gAus Lopez Admit Provider: Dg Raymond Primary Care Provider: Alton Kerns Other Providers: Dg Raymond ; Rigo Verdin
--- NOTE | 2022-05-29 21:50 | Electrocardiogram Report ---
Test Reason : Blood Pressure : / mmHG Vent. Rate : 059 BPM Atrial Rate : 059 BPM P-R Int : 158 ms QRS Dur : 076 ms QT Int : 434 ms P-R-T Axes : 025 000 019 degrees QTc Int : 429 ms Poor data quality, interpretation may be adversely affected Sinus bradycardia Cannot rule out Anterior infarct (cited on or before 27-MAY-2022) Abnormal ECG When compared with ECG of 21-FEB-2022 19:33, Vent. rate has decreased BY 29 BPM T wave amplitude has increased in Anterior leads Confirmed by Anthony Borjas ([id number]) on 05/29/2022 9:50:30 PM Referred By: Alton Kerns Confirmed By:Anthony Borjas
== END 2022-05-29 13:18 | disposition home or self-care (01) ==
LOC: ED 21:48 → 2N 21:48 → SUATTDRO 05-28 02:06 → 2N 05-28 02:51